=== PATIENT | male | born 1960 | race Caucasian/White ===

== ENCOUNTER 2019-01-05 22:10 | Inpatient (IN) ==
--- NOTE | 2019-01-05 22:58 | Emergency Department Note ---
Entered by Roberta Culp acting as a scribe for Salas Stallworth DO History of Present Illness General Chief complaint: Infection Stated complaint: INFECTION IN FEET Source: patient History of Present Illness Provider complaint: foot pain Onset (ago): day(s) (several days ) Location: foot and right Pain Consistency: + other (worsening) Maximum Pain Intensity: 9 Associated symptoms: + fever/chills (+fever, -chills) and + other (+swelling in rigth foot) The patient is a 58 year old male who presents to the Emergency Room with complaints of worsening right food pain. He states that he has been having swelling and pain in the right foot. The patient reports that he thinks that the pain is radiating to his left foot. He reports that his blood sugar was 310 this morning. He states that he has a fever of 104. The patient denies any alcohol use. He denies being on blood thinners. The patient states that he has a history of diabetes mellitus and psoriatic arthritis. Home Medications Home Medications Medication Instructions Recorded Confirmed Type Unobtainable 01/06/19 01/06/19 History Past Med/Surg History Medical History Diabetes mellitus (Chronic) Psoriatic arthritis (Chronic) Social History Preferred Language: Lebanese [employer] Dis[employer] Required: No Beliefs That Will Affect Care: None Current Living Situation: Other Current Living Situation Comment: inmate. Other Information That Helps Us Care for You: No Feels Safe at Home: Yes Safety Concerns: Feels Safe At This Time Smoking Status: Former smoker Hx Alcohol Use: No Hx Substance Use: No Review of Systems See HPI for pertinent positives & negatives. and A total of 10 systems reviewed and were otherwise negative Physical Exam Vital Signs Vital Signs - 24 hr 01/05/19 22:15 01/05/19 23:44 01/06/19 00:00 Temperature 36.7 C Temperature Source Oral Sepsis Recent Fever Within 48 Hours No Sepsis Action Taken by Nursing No Action Required Pulse Rate 59 L 73 Pulse Rate [Right Finger] 73 Pulse Rhythm Regular Pulse Rhythm [Right Finger] Regular Pulse Strength [Right Finger] Normal Respiratory Rate 18 16 16 Respiratory Effort / Characteristics Non-Labored Spontaneous Non-Labored Respiratory Depth Normal Normal Respiratory Pattern Regular Regular Blood Pressure 164/75 H Blood Pressure [Right Arm] 135/58 L Blood Pressure Mean 104 Blood Pressure Mean [Right Arm] 83 Blood Pressure Position Sitting Blood Pressure Position [Right Arm] Lying Pulse Oximetry 93 96 96 Oxygen Delivery Method Room Air Room Air Room Air 01/06/19 01:00 Temperature Temperature Source Sepsis Recent Fever Within 48 Hours Sepsis Action Taken by Nursing Pulse Rate Pulse Rate [Right Finger] 68 Pulse Rhythm Pulse Rhythm [Right Finger] Regular Pulse Strength [Right Finger] Normal Respiratory Rate 16 Respiratory Effort / Characteristics Non-Labored Respiratory Depth Normal Respiratory Pattern Regular Blood Pressure Blood Pressure [Right Arm] 130/60 Blood Pressure Mean Blood Pressure Mean [Right Arm] 83 Blood Pressure Position Blood Pressure Position [Right Arm] Lying Pulse Oximetry 98 Oxygen Delivery Method Room Air GENERAL: Patient is awake alert in no acute distress patient is resting comfortably and showing no signs of anxiety EYES: The conjunctivae are clear. The pupils are round and reactive. EARS, NOSE, MOUTH AND THROAT: The nose is without any evidence of any deformity. Mucous membranes are moist tongue is midline NECK: The neck is nontender and supple. RESPIRATORY: Normal respiratory effort is noted there is no evidence of wheezing rhonchi or rales CARDIOVASCULAR: Regular rate and rhythm noted there no murmurs rubs or gallops normal S1 normal S2 GASTROINTESTINAL: The abdomen is soft. Bowel sounds are present in all quadrants. Abdomen is nontender MUSCULOSKELETAL/EXTREMITIES: There is no evidence of gross deformity full range of motion is noted in the hips and shoulders SKIN: There is bilateral lower extremity edema noted. There is an ulcer on the medial aspect of the right leg. It does have the odor of infection. There is no significant drainage noted. Pulses are symmetric in both feet. NEUROLOGIC: Patient is awake alert and oriented x3. Course 2250: The patient was evaluated in room A9B, and a complete history and physical examination were performed. 0120: I reviewed the patient's case with Dr. Rico [facility] Hospitalist. He will evaluate the patient for further management. Consultations Consultation #1: Dr. Rico [facility] Hospitalist Time: 01:20 Administered Medications Vancomycin HCl 2,250 mg/ (Sodium Chloride) 545 mls @ 200 mls/hr IV NOW ONE; Protocol Stop: 01/06/19 04:02 Last Admin: 01/06/19 02:08 Dose: Not Given Documented by: [id number] Discontinued Medications Piperacillin Sod/Tazobactam Sod (Zosyn) 4.5 gm in 120 mls @ 240 mls/hr IV NOW ONE Stop: 01/06/19 01:48 Last Admin: 01/06/19 02:08 Dose: Not Given Documented by: [id number] Miscellaneous Information (Consult) 1 ea N/A UD PRN PRN Reason: Consult Stop: 02/05/19 01:18 Last Admin: 01/06/19 02:08 Dose: 1 ea Documented by: [id number] Medical Decision Making Differential Diagnosis Differential diagnosis: Etiologies such as cellulitis, abscess, MRSA infection, DVT, necrotizing fasciitis, dermatitis, drug eruption, as well as others were entertained. Medical Records Attestation: I reviewed the patient's medical records. Home Medications Current Medication List: was personally reviewed by me Laboratory Data Attestation: I reviewed the patient's lab results. Result diagrams: 01/05/19 23:24 01/05/19 23:24 Lab Results 01/05/19 01/05/19 01/05/19 Range/Units 23:24 23:24 23:24 WBC 11.62 H (4.8-10.8) K/uL RBC 4.37 L (4.7-6.1) M/uL Hgb 14.3 (14.0-18.0) g/dL Hct 40.5 L (42-52) % MCV 92.7 (80-100) fL MCH 32.7 (25-34) pg MCHC 35.3 (32-36) g/dL RDW Std Deviation 44.3 (36.4-46.3) fL RDW Coeff of Susanne 13.0 (11.5-14.5) % Plt Count 271 (130-400) K/uL MPV 8.9 (7.4-10.4) fL Immature Gran % (Auto) 0.4 % Neut % (Auto) 61.4 % Lymph % (Auto) 29.3 % [place] % (Auto) 7.1 % Eos % (Auto) 1.5 % Baso % (Auto) 0.3 % Immature Gran # (Auto) 0.05 H (0.00-0.02) K/uL Neut # (Auto) 7.14 H (1.4-6.5) K/uL Lymph # (Auto) 3.40 (1.2-3.4) K/uL [place] # (Auto) 0.82 H (0.11-0.59) K/uL Eos # (Auto) 0.18 (0-0.5) K/uL Baso # (Auto) 0.03 (0-0.2) K/uL ESR (0-14) mm/hr PT 10.5 (9.0-12.0) Seconds INR 1.0 (0.9-1.1) APTT 26.3 (21.0-31.0) Seconds PTT Ratio 1.0 Sodium 138 (136-145) mmol/L Potassium 3.6 (3.5-5.1) mmol/L Chloride 105 (98-107) mmol/L Carbon Dioxide 26 (21-32) mmol/L Anion Gap 7.0 (3-11) BUN 17 (7-18) mg/dl Creatinine 0.73 (0.6-1.4) mg/dl Est Cr Clr Drug Dosing 160.0 ml/min Est GFR ( Amer) 120.2 Est GFR (Non-Af Amer) 103.7 BUN/Creatinine Ratio 22.9 H (10-20) Glucose 97 (70-99) mg/dl Lactate (0.4-2.0) mmol/L Calcium 9.1 (8.5-10.1) mg/dl Total Bilirubin 0.4 (0.2-1) mg/dl AST 17 (15-37) U/L ALT 27 (12-78) U/L Alkaline Phosphatase 130 H (45-117) U/L C-Reactive Protein 1.37 H (0-0.29) mg/dl Total Protein 7.1 (6.4-8.2) gm/dl Albumin 4.0 (3.4-5.0) gm/dl Globulin 3.1 (2.5-4.0) gm/dl Albumin/Globulin Ratio 1.3 (0.9-2) Procalcitonin (0-0.5) ng/ml 01/05/19 01/05/19 01/05/19 Range/Units 23:24 23:24 23:24 WBC (4.8-10.8) K/uL RBC (4.7-6.1) M/uL Hgb (14.0-18.0) g/dL Hct (42-52) % MCV (80-100) fL MCH (25-34) pg MCHC (32-36) g/dL RDW Std Deviation (36.4-46.3) fL RDW Coeff of Susanne (11.5-14.5) % Plt Count (130-400) K/uL MPV (7.4-10.4) fL Immature Gran % (Auto) % Neut % (Auto) % Lymph % (Auto) % [place] % (Auto) % Eos % (Auto) % Baso % (Auto) % Immature Gran # (Auto) (0.00-0.02) K/uL Neut # (Auto) (1.4-6.5) K/uL Lymph # (Auto) (1.2-3.4) K/uL [place] # (Auto) (0.11-0.59) K/uL Eos # (Auto) (0-0.5) K/uL Baso # (Auto) (0-0.2) K/uL ESR 19 H (0-14) mm/hr PT (9.0-12.0) Seconds INR (0.9-1.1) APTT (21.0-31.0) Seconds PTT Ratio Sodium (136-145) mmol/L Potassium (3.5-5.1) mmol/L Chloride (98-107) mmol/L Carbon Dioxide (21-32) mmol/L Anion Gap (3-11) BUN (7-18) mg/dl Creatinine (0.6-1.4) mg/dl Est Cr Clr Drug Dosing ml/min Est GFR ( Amer) Est GFR (Non-Af Amer) BUN/Creatinine Ratio (10-20) Glucose (70-99) mg/dl Lactate 0.7 (0.4-2.0) mmol/L Calcium (8.5-10.1) mg/dl Total Bilirubin (0.2-1) mg/dl AST (15-37) U/L ALT (12-78) U/L Alkaline Phosphatase (45-117) U/L C-Reactive Protein (0-0.29) mg/dl Total Protein (6.4-8.2) gm/dl Albumin (3.4-5.0) gm/dl Globulin (2.5-4.0) gm/dl Albumin/Globulin Ratio (0.9-2) Procalcitonin < 0.05 (0-0.5) ng/ml Imaging Data Attestation: I personally reviewed and interpreted this imaging study as follows: My Impression: XR chest: Cardiomegaly noted , no infiltrate, no free air XR tibia: Post-surgical changes noted in medial myelitis. Soft tissue swelling noted on medial aspect of right leg Blood Pressure Blood Pressure Findings: Elevated blood pressure Blood Pressure Disposition: further management by hospitalist BENJIE Narrative The patient is a 58-year-old male who presents to the emergency department with police custody. [facility] is no infirmary and the patient would not have access to medical care while he is in the longterm. The patient has been having problems with right lower extremity swelling and redness. It does not sound like this is a new finding but the patient has not been taking medications. He had a history of infection as well as osteomyelitis at this site. The patient had significant pain and redness. He had no fever. The patient is a history of diabetes and other medical problems but he is not currently compliant with medications. I discussed the patient's laboratory and radiographic studies with him. He was found to have an elevated white blood cell count. He also has significant soft tissue swelling on x-ray. The patient had cultures obtained. I discussed his case with the on- call [facility] hospitalist group. They have agreed to evaluate the patient in the emergency department for further management and disposition. Initially we did order antibiotics for the patient but at the request of the admitting team they will be held until the patient can be evaluated further and possible biopsies taken. Impression & Plan Diabetic ulcer of ankle, Gangrene, Edema of right lower extremity Discharge Plan Visit Data *Final* Discharge Date/Time: 01/06/19 02:07 Chief Complaint: Infection Stated Complaint: INFECTION IN FEET ED Provider: Salas Stallworth Discharge Problem: Diabetic ulcer of ankle, Gangrene, Edema of right lower extremity Patient Disposition: Admitted As Inpatient Discharge Instructions Interventions: ED Discharge Assessment Last Done: 01/06/19 02:07 The scribe's documentation has been prepared under my direction and personally reviewed by me in its entirety. I confirm that the note above accurately reflects all work, treatment, procedures, and medical decision making performed by me.
[2019-01-05 23:54] LABS: Basophils # (auto) 0.03 K/uL (0-0.2); Basophils % (auto) 0.3 %; Eosinophils # (auto) 0.18 K/uL (0-0.5); Eosinophils % (auto) 1.5 %; Hematocrit (blood only) 40.5 % (42-52); Hemoglobin 14.3 g/dL (14.0-18.0); Immature Granulocytes # (auto) 0.05 K/uL (0.00-0.02); Immature Granulocytes % (auto) 0.4 %; Lymphocytes % (auto) 29.3 %; Mean Corpuscular Hgb Conc 35.3 g/dL (32-36); Mean Corpuscular Volume 92.7 fL (80-100); Mean Platelet Volume 8.9 fL (7.4-10.4); Monocytes # (auto) 0.82 K/uL (0.11-0.59); Monocytes % (auto) 7.1 %; Neutrophils # (auto) 7.14 K/uL (1.4-6.5); Neutrophils % (auto) 61.4 %; Platelet Count 271 K/uL (130-400); RDW Standard Deviation 44.3 fL (36.4-46.3); Red Blood Count 4.37 M/uL (4.7-6.1); White Blood Count 11.62 K/uL (4.8-10.8)
[2019-01-06 00:06] LABS: Partial Thromboplastin Time 26.3 Seconds (21.0-31.0); Prothrombin Time 10.5 Seconds (9.0-12.0)
[2019-01-06 00:13] LABS: BUN Creatinine Ratio 22.9 (10-20); C Reactive Protein 1.37 mg/dl (0-0.29); Calcium 9.1 mg/dl (8.5-10.1); Est GFR (African American) 120.2; Est GFR (Non-African American) 103.7; Potassium 3.6 mmol/L (3.5-5.1)
[2019-01-06 00:16] LABS: Albumin Globulin Ratio 1.3 (0.9-2); Bilirubin,Total 0.4 mg/dl (0.2-1); Globulin 3.1 gm/dl (2.5-4.0); Total Protein 7.1 gm/dl (6.4-8.2)
[2019-01-06] MEDS ORDERED: PIPERACILL/TAZOBAC CONSULT ACTIVE PRN (01:19)
[2019-01-06] MEDS ORDERED: VANCOMYCIN CONSULT ACTIVE PRN ×2 (01:19→08:19)
[2019-01-06] MEDS ORDERED: VANCOMYCIN HCL 2,250 MG in SODIUM CHLORIDE 0.9% 500 ML IV ONE ×2 (01:19→09:30)
[2019-01-06] MEDS ORDERED: PIPERACILLIN/TAZOBACTAM 4.5 GM/120 ML BAG IV ONE (01:19)
[2019-01-06] MEDS ORDERED: ONDANSETRON INJ 2 MG/ML 2 ML VIAL IV PRN (02:26)
[2019-01-06] MEDS ORDERED: ACETAMINOPHEN 1000 MG/100 ML IV IV PRN (02:26)
[2019-01-06] MEDS ORDERED: CARBOHYDRATES FOR HYPOGLYCEMIA PO PRN (02:26)
[2019-01-06] MEDS ORDERED: GLUCAGON FOR INJ 1 MG VIAL SQ PRN (02:26)
[2019-01-06] MEDS ORDERED: DEXTROSE 50% 50 ML SYRINGE IV PRN (02:26)
[2019-01-06] MEDS ORDERED: GLUCOSE 40% GEL 15 GM TUBE PO PRN (02:26)
[2019-01-06] MEDS ORDERED: GLUCOSE 10 TABS/TUBE PO PRN (02:26)
[2019-01-06] MEDS: NSS + 20MEQ KCL 20 MEQ/1,000 ML BAG IV SCH ×3 (03:25→23:53)
[2019-01-06 05:30] LABS: Appearance Urine Clear (Clear); Bilirubin Urine Negative (Negative); Color Urine Yellow; Glucose Urine UA 2+ (Negative); Ketones Urine Negative (Negative); Leukocyte Esterase Urine Negative (Negative); Nitrite Urine Negative (Negative); Protein Urine Negative (Negative); Specific Gravity Urine 1.018 (1.000-1.030); Urobilinogen Urine Negative (Negative)
--- NOTE | 2019-01-06 06:06 | History & Physical Report ---
Date of Service January 06, 2019 Assessment & Plan (1) Diabetic ulcer of ankle: Diabetic ulcers of right ankle/history of ORIF with pins/reported history of bone infection in the past- No records available for patient's medical history. We will hold off on antibiotics at this point until seen by orthopedics to determine best course of treatment with hardware present. Order CT of right lower extremity/ankle. Consult orthopedic surgery. Present on Admission?: Yes (2) Neutrophilic leukocytosis: See above Present on Admission?: Yes (3) Diabetes mellitus: Patient does not have a list of his medications available. We will check hemoglobin A1c. Place on Accu-Cheks before meals and at bedtime with NovoLog coverage per scale. Present on Admission?: Yes (4) Status post ORIF of fracture of ankle: See above Present on Admission?: Yes (5) Obesity (BMI 30-39.9): Counseling Present on Admission?: Yes History of Present Illness Chief Complaint: The patient is brought to the emergency department due to worsening right ankle open wounds and pain. Primary Care Provider: [facility] The patient is a 58-year-old male, currently residing in [facility], who is brought to the emergency department due to worsening pain, swelling and open lesions on both sides of his right ankle. He reports a temperature of 104 degrees and his blood sugar was 310 this morning. He has a history of fracture and pins placed in the right ankle. Allergies Allergy/AdvReac Type Severity Reaction Status Date / Time bee venom protein (honey bee) Allergy Severe Anaphylaxis Verified 01/06/19 04:40 Penicillins Allergy Severe Anaphylaxis Verified 01/06/19 04:40 Home Medications Home Medications Medication Instructions Recorded Confirmed Type Unobtainable 01/06/19 01/06/19 History Past Med/Surg History Medical History Diabetes mellitus (Chronic) Psoriatic arthritis (Chronic) Social History Preferred Language: [place] [employer] Required: No Beliefs That Will Affect Care: None Current Living Situation: Other Current Living Situation Comment: inmate. Other Information That Helps Us Care for You: No Feels Safe at Home: Yes Safety Concerns: Feels Safe At This Time Smoking Status: Former smoker Hx Alcohol Use: No Hx Substance Use: No Review of Systems Review of Systems: The patient denies chest pain, palpitations, shortness of breath, dyspnea on exertion, cough, sore throat, chills, sweats, nausea, vomiting, diarrhea , constipation, abdominal pain, pelvic pain, blood in urine or stool, dysuria, urinary frequency or urgency, lightheadedness, dizziness, headache, memory loss, loss of consciousness, focal or generalized weakness, numbness or tingling in arms, generalized arthralgias or myalgias, back or neck pain, or night sweats. The review of systems is otherwise negative other than for that already noted above, and at least 10 systems have been reviewed. Physical Exam Physical Exam: The patient is awake, alert and oriented 3, obese and unkempt, normocephalic and atraumatic, lying in bed and in no acute distress. HEENT--PERRL, EOMI, mucous membranes and oropharynx normal. Neck--supple. No JVD. No bruits. Thyroid normal, trachea midline, no adenopathy. Heart--normal S1 and S2. No murmurs, rubs or gallops. Lungs--clear bilaterally, no respiratory distress, no accessory muscle use. Abdomen--normal bowel sounds and soft. Nontender. Nondistended, obese. Extremities/dermatologic--chronic venous stasis changes bilaterally. Right lower extremity with open ulcerations medially greater than laterally and surrounding erythema. Tender to touch Neurologic--cranial nerves II through XII grossly intact. Rheumatologic--normal range of motion. Psychiatric--normal affect. Results & Data Vital Signs (Past 12 Hours) Vital Signs Temp Pulse Pulse Resp BP BP Pulse Ox 01/06/19 02:07 62 16 136/56 L 97 01/06/19 01:00 68 16 130/60 98 01/06/19 00:00 73 16 96 01/05/19 23:44 73 16 135/58 L 96 01/05/19 22:15 98.1 F 59 L 18 164/75 H 93 Laboratory Results Laboratory Results WBC 11.62 K/uL (4.8-10.8) H 01/05/19 23:24 RBC 4.37 M/uL (4.7-6.1) L 01/05/19 23:24 Hgb 14.3 g/dL (14.0-18.0) 01/05/19 23:24 Hct 40.5 % (42-52) L 01/05/19 23:24 MCV 92.7 fL (80-100) 01/05/19 23:24 MCH 32.7 pg (25-34) 01/05/19 23:24 MCHC 35.3 g/dL (32-36) 01/05/19 23:24 RDW Std Deviation 44.3 fL (36.4-46.3) 01/05/19: RDW Coeff of Susanne 13.0 % (11.5-14.5) 01/05/19: Plt Count 271 K/uL (130-400) 01/05/19: MPV 8.9 fL (7.4-10.4) 01/05/19: Immature Gran % (Auto) 0.4 % 01/05/19 23: Neut % (Auto) 61.4 % 01/05/19 23:24 Lymph % (Auto) 29.3 % 01/05/19 23:24 [place] % (Auto) 7.1 % 01/05/19 23:24 Eos % (Auto) 1.5 % 01/05/19: Baso % (Auto) 0.3 % 01/05/19: Immature Gran # (Auto) 0.05 K/uL (0.00-0.02) H 01/05/19 23:24 Neut # (Auto) 7.14 K/uL (1.4-6.5) H 01/05/19 23:24 Lymph # (Auto) 3.40 K/uL (1.2-3.4) 01/05/19 23:24 [place] # (Auto) 0.82 K/uL (0.11-0.59) H 01/05/19 23:24 Eos # (Auto) 0.18 K/uL (0-0.5) 01/05/19: Baso # (Auto) 0.03 K/uL (0-0.2) 01/05/19 23:24 ESR 19 mm/hr (0-14) H 01/05/19 23:24 PT 10.5 Seconds (9.0-12.0) 01/05/19 23: INR 1.0 (0.9-1.1) 01/05/19 23:24 APTT 26.3 Seconds (21.0-31.0) 01/05/19 23:24 PTT Ratio 1.0 01/05/19 23:24 Sodium 138 mmol/L (136-145) 01/05/19 23:24 Potassium 3.6 mmol/L (3.5-5.1) 01/05/19 23:24 Chloride 105 mmol/L (98-107) 01/05/19 23:24 Carbon Dioxide 26 mmol/L (21-32) 01/05/19 23:24 Anion Gap 7.0 (3-11) 01/05/19 23:24 BUN 17 mg/dl (7-18) 01/05/19 23:24 Creatinine 0.73 mg/dl (0.6-1.4) 01/05/19 23:24 Est Cr Clr Drug Dosing 160.0 ml/min 01/05/19 23:24 Est GFR ( Amer) 120.2 01/05/19 23:24 Est GFR (Non-Af Amer) 103.7 01/05/19 23:24 BUN/Creatinine Ratio 22.9 (10-20) H 01/05/19 23:24 Glucose 97 mg/dl (70-99) 01/05/19 23:24 POC Glucose 140 (70-99) H 01/06/19 03:39 Lactate 0.7 mmol/L (0.4-2.0) 01/05/19 23:24 Calcium 9.1 mg/dl (8.5-10.1) 01/05/19 23:24 Total Bilirubin 0.4 mg/dl (0.2-1) 01/05/19 23:24 AST 17 U/L (15-37) 01/05/19 23:24 ALT 27 U/L (12-78) 01/05/19 23:24 Alkaline Phosphatase 130 U/L (45-117) H 01/05/19 23:24 C-Reactive Protein 1.37 mg/dl (0-0.29) H 01/05/19 23:24 Total Protein 7.1 gm/dl (6.4-8.2) 01/05/19 23:24 Albumin 4.0 gm/dl (3.4-5.0) 01/05/19 23:24 Globulin 3.1 gm/dl (2.5-4.0) 01/05/19 23:24 Albumin/Globulin Ratio 1.3 (0.9-2) 01/05/19 23:24 Procalcitonin < 0.05 ng/ml (0-0.5) 01/05/19 23:24 Urine Color Yellow 01/06/19 05:00 Urine Appearance Clear (Clear) 01/06/19 05:00 Urine pH 7.0 (4.5-7.5) 01/06/19 05:00 Ur Specific [place] 1.018 (1.000-1.030) 01/06/19 05:00 Urine Protein Negative (Negative) 01/06/19 05:00 Urine Glucose (UA) 2+ (Negative) H 01/06/19 05:00 Urine Ketones Negative (Negative) 01/06/19 05:00 Urine Blood Negative (Negative) 01/06/19 05:00 Urine Nitrite Negative (Negative) 01/06/19 05:00 Urine Bilirubin Negative (Negative) 01/06/19 05:00 Urine Urobilinogen Negative (Negative) 01/06/19 05:00 Ur Leukocyte Esterase Negative (Negative) 01/06/19 05:00 Code Status & VTE Plan Code Status Full code VTE Prophylaxis Plan VTE Prophylaxis will be ordered: Yes PG Care Time/CCT Total # of Minutes Spent Total Time Spent with Patient: Total time spent is greater than 50% in coordination of care (as documented) at patient's floor/unit and/or counseling patient:
--- NOTE | 2019-01-06 06:37 | XRay Report ---
XR chest 1V portable CLINICAL HISTORY: Sepsis COMPARISON STUDY: No previous studies for comparison. FINDINGS: Lung volumes are normal. Lungs are clear. There is no pneumothorax or pleural effusion. The heart is mildly enlarged. Mediastinal contours are normal. There is no evidence for pulmonary edema. IMPRESSION: 1. No acute cardiopulmonary findings. 2. Mild cardiomegaly. Electronically signed by: Kong Green M.D. 01/06/2019 6:35 AM
[2019-01-06 06:41] LABS: Basophils # (auto) 0.03 K/uL (0-0.2); Basophils % (auto) 0.3 %; Eosinophils # (auto) 0.22 K/uL (0-0.5); Eosinophils % (auto) 2.5 %; Hematocrit (blood only) 41.2 % (42-52); Hemoglobin 14.3 g/dL (14.0-18.0); Immature Granulocytes # (auto) 0.02 K/uL (0.00-0.02); Immature Granulocytes % (auto) 0.2 %; Lymphocytes # (auto) 2.41 K/uL (1.2-3.4); Lymphocytes % (auto) 27.7 %; Mean Corpuscular Hgb Conc 34.7 g/dL (32-36); Mean Corpuscular Volume 92.8 fL (80-100); Mean Platelet Volume 8.9 fL (7.4-10.4); Monocytes # (auto) 0.74 K/uL (0.11-0.59); Monocytes % (auto) 8.5 %; Neutrophils # (auto) 5.27 K/uL (1.4-6.5); Neutrophils % (auto) 60.8 %; Platelet Count 255 K/uL (130-400); RDW Coefficient of Variation 13.1 % (11.5-14.5); RDW Standard Deviation 44.6 fL (36.4-46.3); Red Blood Count 4.44 M/uL (4.7-6.1); White Blood Count 8.69 K/uL (4.8-10.8)
[2019-01-06 06:52] LABS: Partial Thromboplastin Time 27.6 Seconds (21.0-31.0); Prothrombin Time 10.5 Seconds (9.0-12.0)
--- NOTE | 2019-01-06 06:56 | XRay Report ---
XR tibia fibula RT 2V HISTORY: 58 years-old Male ulcer to the RLE chronic pain and swelling of the right lower leg with op en wounds. COMPARISON: Right ankle CT of same day TECHNIQUE: 2 views of the right tibia and fibula FINDINGS: There are 2 K wires with cannulated screw and cerclage wire noted about the medial malleolus. No acut e fracture, subluxation or bony erosive changes identified. Soft tissue swelling noted about the leg, and ankle. No opaque foreign body. Mild degenerative changes of the ankle and knee. IMPRESSION: 1. No acute fracture or dislocation. 2. Soft tissue swelling with postoperative changes of the ankle. The above report was generated using voice recognition software. It may contain grammatical, syntax o r spelling errors. Electronically signed by: Bienvenido Rocha M.D. 01/06/2019 6:55 AM
[2019-01-06] MEDS: PATIENT'S ALLERGY INFO NEEDS ENTERED SCH (07:00)
[2019-01-06 07:09] LABS: Albumin Level 3.5 gm/dl (3.4-5.0); BUN Creatinine Ratio 20.5 (10-20); Calcium 8.5 mg/dl (8.5-10.1); Creatinine Clr Calc Pharmacy 175.7 ml/min; Est GFR (African American) 120.9; Est GFR (Non-African American) 104.3; Potassium 3.9 mmol/L (3.5-5.1)
[2019-01-06 07:12] LABS: Albumin Globulin Ratio 1.1 (0.9-2); Bilirubin,Total 0.6 mg/dl (0.2-1); Globulin 3.1 gm/dl (2.5-4.0); Total Protein 6.6 gm/dl (6.4-8.2)
--- NOTE | 2019-01-06 07:47 | CT Scan Report ---
CT ankle RT wo con HISTORY: 58 years-old Male diabetic R ankle ulcers, pins previous fracture chronic diabetic ulcer of the right lower leg with history of prior surgery of the ankle. COMPARISON: Tibia and fibula radiographs of same day TECHNIQUE: Multiple axial CT images of the right ankle were obtained without the use of IV contrast. A dose lowering technique was used consistent with the principals of NGHIA. FINDINGS: Soft tissue ulceration about the medial malleolus measures up to 3.1 x 0.4 x 4.3 cm. There is skin th ickening within this distribution with moderate subcutaneous edema. No drainable fluid collection. Ad ditional soft tissue ulceration is noted about the lateral hindfoot distribution, 1.1 x 0.5 x 2.7 cm without drainable fluid collection. Study is not tailored to assess the ligaments and tendons. Superf icial venous varices noted about the lower leg and ankle. The tendons of the ankle appear grossly unr emarkable. There are 2 K wires with cerclage wire and single cannulated screw noted about the medial malleolus. No evidence of hardware fracture or loosening. 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 Remote fra cture deformity is of the distal tibia and fibula. Marginal spurring of the calcaneus. No acute fract ure, dislocation, bony erosive change or osteochondral defect identified. No intra-articular loose chacha dy. IMPRESSION: 1. No acute fracture, dislocation or bony erosive changes to suggest acute osteomyelitis. 2. Healed remote fracture deformities of the ankle with hardware of the medial malleolus as above. No evidence of acute hardware complication. 3. Soft tissue ulcerations about the medial ankle and lateral hindfoot as above. Additionally, there is associated skin thickening within these distributions with subcutaneous edema suggestive of associ ated cellulitis. No opaque foreign body or drainable fluid collection. The above report was generated using voice recognition software. It may contain grammatical, syntax o r spelling errors. Electronically signed by: Bienvenido Rocha M.D. 01/06/2019 7:45 AM
[2019-01-06] MEDS: INSULIN ASPART 100 UNITS/ML 3 ML PEN SC SCH ×4 (08:31→22:06)
[2019-01-06 09:44] LABS: Estimated Average Glucose 146 mg/dl
--- NOTE | 2019-01-06 09:55 | Pharmacy Report ---
Pharmacy Abx Initial Consult - Date of Service January 06, 2019 - Pharmacy Dosing Scope Date of Consult: 01/06/19 Consultation requested by: Dr. Baker Pharmacy is consulted to initiate vancomycin IV/PO dosing therapy, order appropriate labs and adjust drug dose/frequency. - Subjective The patient is a 58 year old M admitted on 01/06/19 01:49. - Objective Height: 6 ft 6 in Weight: 134 kg Lab Results (24hrs): Laboratory Tests (24 Hours) 01/06/19 01/06/19 01/05/19 06:27 06:27 23:24 WBC 8.69 Neut # (Auto) 5.27 ESR 19 H Creatinine 0.72 Est Cr Clr Drug Dosing 175.7 C-Reactive Protein Procalcitonin Micro Results: 01/06/19 01:46 Gram Stain - Final Ankle,Right Wound Culture - Pending 01/05/19 23:49 Aerobic Blood Culture - Pending Blood Anaerobic Blood Culture - Pending 01/05/19 23:24 Aerobic Blood Culture - Pending Blood Anaerobic Blood Culture - Pending - Assessment & Plan Assessment 58 year old with diabetic ulcer of ankle. Per MD note, patient reports history of bone infection in the past. Ortho consulted due to hardware being present. Xrays not suggestive of acute osteomyelitis or evidence of hardware complication. ID consulted per P[employer]T policy due to patient also being ordered imipenem. Vancomycin: * 2250 mg x 1 had been ordered in the ED - however documentation shows not given/but noted dose infused on entry. Patient reports dose not being given and also checked and have original bag in pharmacy. No other doses debited * Reordered loading dose of vancomycin 2250 mg (~20 mg/kg) - based on admitting weight of 113 kg ; had nurse reweigh patient today and weight ~127 kg * Will start maintenance dose of vancomycin 1500 mg (~12 mg/kg) iv q 10 hrs to achieve an estimated trough ~15 mcg/ml (goal for cellulitis) - unconventional dosing chosen as patient with higher BMI, therefore expect some accumulation with vancomycin * Will plan to order trough prior to the 0200 dose on 01/08 to ensure therapeutic Imipenem: (not consult) 500 mg iv q 6 - dosed appropriate / no adjustment for renal function Pharmacy will continue to follow and will adjust dose/frequency as necessary. Thank you.
[2019-01-06] MEDS: IMIPENEM/CILASTATIN SODIUM 500 MG in DEXTROSE 5% 100 ML IV SCH ×3 (12:55→23:55)
--- NOTE | 2019-01-06 17:18 | History & Physical Bridge Note ---
Date of Service January 06, 2019 History & Physical Bridge Note Patient seen and examined today. Still with ankle pain. Reports it has been getting worse over the last few days. - IV abx - Wound RN - Ortho consult - Follow cultures
--- NOTE | 2019-01-06 19:05 | Orthopedic Consultation ---
Date of Consultation January 06, 2019 Assessment & Plan (1) Diabetic ulcer of ankle: Acute on chronic diabetic ankle ulceration, CT negative for osteo/abcess, follow cultures, begin IV abx, wound care with wound vac/enzymatic debridement, NWB RLE, Ice/elevation, trend inflammatory labs, if symptoms worsening will require formal I+D in OR and possible removal of hardware, will continue to monitor. Thank you for the consultation. History of Present Illness Reason for Consultation: The patient is a 58 year old incarcerated male with PMHx of DM, previous right ankle fracture treated in [place] 8 years prior, liu moran reports several year history of intermittent medial ankle ulcer. The patient is a poor historian. Reports rubbing of medial ankle inside his boot recently and developed worsening medial and lateral foot ulceration. Had episode of fevers and seen at [facility] ED. Elevated WBC at 11.62 now 8.69. Patient currently afebrile, has not had abx or wound care since symptoms developed. Denies trauma, numbness or tingling in RLE. Attending Physician: Deion Baker MD Allergies Allergy/AdvReac Type Severity Reaction Status Date / Time bee venom protein (honey bee) Allergy Severe Anaphylaxis Verified 01/06/19 04:40 Penicillins Allergy Severe Anaphylaxis Verified 01/06/19 04:40 Home Medications Home Medications Medication Instructions Recorded Confirmed Type Unobtainable 01/06/19 01/06/19 History Patient History Medical History Diabetes mellitus (Chronic) Psoriatic arthritis (Chronic) Social History Preferred Language: [place] [employer] Sales[employer] Required: No Beliefs That Will Affect Care: None Current Living Situation: Other Current Living Situation Comment: inmate. Other Information That Helps Us Care for You: No Feels Safe at Home: Yes Safety Concerns: Feels Safe At This Time Smoking Status: Former smoker Hx Alcohol Use: No Hx Substance Use: No Review of Systems Review of Systems: All systems reviewed & are unremarkable except as noted in HPI & below Constitutional: as per Subjective / HPI Physical Exam Physical Exam: RLE NVSI +EHL/FHL/TA/GS SILT grossly, +2 DP pulse, compartments soft NT, 2.5x3.5cm medial ankle wound, 1x1cm lateral ankle wound, +erythema and edema, no fluctuance or purulent drainage, no exposed hardware. Constitutional: WD/WN, vitals as above Results & Data Vital Signs (Past 12 Hours) Vital Signs Temp Pulse Resp BP Pulse Ox 01/06/19 16:03 36.7 C 63 122/65 01/06/19 07:16 36.6 C 56 L 16 113/63 95 Diagnostic Findings XR tibia fibula RT 2V HISTORY: 58 years-old Male ulcer to the RLE chronic pain and swelling of the right lower leg with open wounds. COMPARISON: Right ankle CT of same day TECHNIQUE: 2 views of the right tibia and fibula FINDINGS: There are 2 K wires with cannulated screw and cerclage wire noted about the medial malleolus. No acute fracture, subluxation or bony erosive changes identified. Soft tissue swelling noted about the leg, and ankle. No opaque foreign body. Mild degenerative changes of the ankle and knee. IMPRESSION: 1. No acute fracture or dislocation. 2. Soft tissue swelling with postoperative changes of the ankle. CT ankle RT wo con HISTORY: 58 years-old Male diabetic R ankle ulcers, pins previous fracture chronic diabetic ulcer of the right lower leg with history of prior surgery of the ankle. COMPARISON: Tibia and fibula radiographs of same day TECHNIQUE: Multiple axial CT images of the right ankle were obtained without the use of IV contrast. A dose lowering technique was used consistent with the principals of ALARA. FINDINGS: Soft tissue ulceration about the medial malleolus measures up to 3.1 x 0.4 x 4.3 cm. There is skin thickening within this distribution with moderate subcutaneous edema. No drainable fluid collection. Additional soft tissue ulceration is noted about the lateral hindfoot distribution, 1.1 x 0.5 x 2.7 cm without drainable fluid collection. Study is not tailored to assess the ligaments and tendons. Superficial venous varices noted about the lower leg and ankle. The tendons of the ankle appear grossly unremarkable. There are 2 K wires with cerclage wire and single cannulated screw noted about the medial malleolus. No evidence of hardware fracture or loosening. 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 Remote fracture deformity is of the distal tibia and fibula. Marginal spurring of the calcaneus. No acute fracture, dislocation, bony erosive change or osteochondral defect identified. No intra- articular loose body. IMPRESSION: 1. No acute fracture, dislocation or bony erosive changes to suggest acute osteomyelitis. 2. Healed remote fracture deformities of the ankle with hardware of the medial malleolus as above. No evidence of acute hardware complication. 3. Soft tissue ulcerations about the medial ankle and lateral hindfoot as above. Additionally, there is associated skin thickening within these distributions with subcutaneous edema suggestive of associated cellulitis. No opaque foreign body or drainable fluid collection.
[2019-01-06] MEDS: VANCOMYCIN HCL 1,500 MG in SODIUM CHLORIDE 0.9% 500 ML IV SCH (19:32)
[2019-01-06] MEDS: MoRPHine SULFATE 4 MG/ML 1 ML CARP\\VIAL IV PRN ×2 (19:38→23:53)
[2019-01-07] MEDS: IMIPENEM/CILASTATIN SODIUM 500 MG in DEXTROSE 5% 100 ML IV SCH ×3 (04:19→19:21)
[2019-01-07] MEDS: VANCOMYCIN HCL 1,500 MG in SODIUM CHLORIDE 0.9% 500 ML IV SCH ×2 (05:23→15:28)
[2019-01-07 06:11] LABS: Basophils # (auto) 0.03 K/uL (0-0.2); Basophils % (auto) 0.4 %; Eosinophils # (auto) 0.15 K/uL (0-0.5); Eosinophils % (auto) 1.8 %; Hematocrit (blood only) 39.4 % (42-52); Hemoglobin 13.7 g/dL (14.0-18.0); Immature Granulocytes # (auto) 0.02 K/uL (0.00-0.02); Immature Granulocytes % (auto) 0.2 %; Lymphocytes # (auto) 2.87 K/uL (1.2-3.4); Lymphocytes % (auto) 33.8 %; Mean Corpuscular Hgb Conc 34.8 g/dL (32-36); Monocytes % (auto) 8.2 %; Neutrophils # (auto) 4.72 K/uL (1.4-6.5); Neutrophils % (auto) 55.6 %; Platelet Count 270 K/uL (130-400); RDW Coefficient of Variation 13.2 % (11.5-14.5); RDW Standard Deviation 45.6 fL (36.4-46.3); Red Blood Count 4.19 M/uL (4.7-6.1); White Blood Count 8.49 K/uL (4.8-10.8)
[2019-01-07 06:32] LABS: Prothrombin Time 10.7 Seconds (9.0-12.0)
[2019-01-07 06:35] LABS: Albumin Level 3.3 gm/dl (3.4-5.0); BUN Creatinine Ratio 22.9 (10-20); Calcium 8.6 mg/dl (8.5-10.1); Creatinine Clr Calc Pharmacy 184.3 ml/min; Est GFR (African American) 124.5; Est GFR (Non-African American) 107.4; Potassium 4.2 mmol/L (3.5-5.1)
[2019-01-07 06:38] LABS: Albumin Globulin Ratio 1.1 (0.9-2); Bilirubin,Total 0.5 mg/dl (0.2-1); Total Protein 6.3 gm/dl (6.4-8.2)
[2019-01-07] MEDS: INSULIN ASPART 100 UNITS/ML 3 ML PEN SC SCH ×4 (08:42→20:45)
[2019-01-07] MEDS: MoRPHine SULFATE 4 MG/ML 1 ML CARP\\VIAL IV PRN ×2 (08:59→15:28)
[2019-01-07] MEDS: NSS + 20MEQ KCL 20 MEQ/1,000 ML BAG IV SCH ×2 (09:43→22:26)
--- NOTE | 2019-01-07 12:39 | Hospitalist Progress Note ---
Date of Service January 07, 2019 Assessment & Plan (1) Diabetic ulcer of ankle: Diabetic ulcers of right ankle/history of ORIF with pins/reported history of bone infection in the past- No records available for patient's medical history. Started yesterday Imipenam/Cilastatine Q6 hr and Vancomycine 1.5 mg to cover for Staph aureus that pt right ankle wound has been growing and with a trough between 15-20. Appreciated orthopedic recommendations and follow up. (2) Neutrophilic leukocytosis: See above (3) Diabetes mellitus: A1c Accu- 6.7. Continue accuchecks AC&HS, and SSI before meals and at bedtime with NovoLog coverage per scale. (4) Status post ORIF of fracture of ankle: See above (5) Obesity (BMI 30-39.9): Counseling Subjective Pt is resting in the bed. No acute event over night.Slowly improving PO intake. Pt is afebrile. Pt informed that his blood cultures are negative so far and that his wound culture grew staph aureus and G-bacilli. Review of Systems Review of Systems: All systems reviewed & are unremarkable except as noted in HPI & below Physical Exam Physical Exam: Diabetic ulcer located at the anterior and medial aspect of the right ankle. Induration approximately 3cm x 2.5 cm in size and depth of 1 cm. Constitutional: WD/WN, vitals as above well developed, well nourished, + well hydrated, comfortable and + overweight Eyes: PERRL, conjunctivae normal, anicteric sclerae Neck: trachea midline, no thyromegaly Respiratory: normal respiratory effort, lungs clear to auscultation Cardiovascular: RRR, no murmur, no edema Chest (Breasts): normal inspection/palpation of breasts Gastrointestinal (Abdomen): normal bowel sounds, soft, nontender, no hepatosp lenomegaly Musculoskeletal: no cyanosis or clubbing, extremities motor strength 5/5 Skin: + ulcer, + hair thinning and + nails dystrophic Neurologic: patellar DTR's 2+ bilat, sensation intact Psychiatric: A+Ox3, euthymic affect Lymphatic: no cervical or axillary lymphadenopathy Results & Data Vital Signs (Past 12 Hours) Vital Signs Temp Pulse Resp BP Pulse Ox 01/07/19 07:54 37.0 C 56 L 20 122/71 97 PG Care Time/CCT Total # of Minutes Spent Total Time Spent with Patient: Total time spent is greater than 50% in coordination of care (as documented) at patient's floor/unit and/or counseling patient:
[2019-01-08] MEDS: IMIPENEM/CILASTATIN SODIUM 500 MG in DEXTROSE 5% 100 ML IV SCH ×5 (00:01→23:25)
[2019-01-08] MEDS ORDERED: VANCOMYCIN TROUGH ONE (01:30)
[2019-01-08] MEDS: VANCOMYCIN HCL 1,500 MG in SODIUM CHLORIDE 0.9% 500 ML IV SCH ×2 (01:34→14:36)
[2019-01-08 02:16] LABS: Basophils # (auto) 0.04 K/uL (0-0.2); Basophils % (auto) 0.4 %; Eosinophils # (auto) 0.14 K/uL (0-0.5); Eosinophils % (auto) 1.6 %; Hematocrit (blood only) 39.9 % (42-52); Hemoglobin 13.8 g/dL (14.0-18.0); Immature Granulocytes # (auto) 0.02 K/uL (0.00-0.02); Immature Granulocytes % (auto) 0.2 %; Lymphocytes # (auto) 2.87 K/uL (1.2-3.4); Lymphocytes % (auto) 32.2 %; Mean Corpuscular Hgb Conc 34.6 g/dL (32-36); Mean Corpuscular Volume 91.5 fL (80-100); Mean Platelet Volume 8.9 fL (7.4-10.4); Monocytes # (auto) 0.53 K/uL (0.11-0.59); Monocytes % (auto) 5.9 %; Neutrophils # (auto) 5.32 K/uL (1.4-6.5); Neutrophils % (auto) 59.7 %; Platelet Count 234 K/uL (130-400); RDW Coefficient of Variation 12.9 % (11.5-14.5); Red Blood Count 4.36 M/uL (4.7-6.1); White Blood Count 8.92 K/uL (4.8-10.8)
[2019-01-08 02:20] LABS: Prothrombin Time 10.5 Seconds (9.0-12.0)
[2019-01-08 02:29] LABS: Albumin Level 3.3 gm/dl (3.4-5.0); Calcium 8.6 mg/dl (8.5-10.1); Creatinine Clr Calc Pharmacy 171.5 ml/min; Est GFR (African American) 120.9; Est GFR (Non-African American) 104.3
[2019-01-08 02:32] LABS: Bilirubin,Total 0.4 mg/dl (0.2-1); C Reactive Protein 0.63 mg/dl (0-0.29); Globulin 3.2 gm/dl (2.5-4.0); Total Protein 6.5 gm/dl (6.4-8.2)
[2019-01-08] MEDS: NSS + 20MEQ KCL 20 MEQ/1,000 ML BAG IV SCH ×2 (04:03→14:36)
[2019-01-08] MEDS: INSULIN ASPART 100 UNITS/ML 3 ML PEN SC SCH ×4 (08:44→21:01)
[2019-01-08] MEDS: MoRPHine SULFATE 4 MG/ML 1 ML CARP\\VIAL IV PRN ×2 (08:45→21:02)
--- NOTE | 2019-01-08 09:37 | Pharmacy Report ---
Pharmacy Abx Dose Short Note - Date of Service January 08, 2019 - Assessment & Plan Assessment 58 year old M receiving Vancomycin 1500mg IV q10h for treatment of diabetic ulcer of the ankle. Day # 3 of antimicrobial therapy. No suspected osteo involvement. Laboratory Tests 01/08/19 01:55 Vancomycin Trough 16.2 Plan Vancomycin * Trough level of 16.2 mcg/mL is slightly supratherapeutic for this indication. Given the patient's risk for drug accumulation with a BMI ~33, will extend dosing interval. * Change to 1500 mg IV every 12 hours * Goal trough level ~15 mcg/mL for cellulitis. * Trough or random level ordered for: 01/10/19 before 0200 dose. Pharmacy will continue to follow and will adjust dose/frequency as necessary. Thank you.
--- NOTE | 2019-01-08 17:11 | Hospitalist Progress Note ---
Date of Service January 08, 2019 Assessment & Plan (1) Diabetic ulcer of ankle: Diabetic ulcers of right ankle/history of ORIF with pins/reported history of bone infection in the past- No records available for patient's medical history. Started yesterday Imipenam/Cilastatine Q6 hr and Vancomycine 1.5 mg to cover for Staph aureus that pt right ankle wound has been growing and with a trough between 15-20. Appreciated orthopedic recommendations and follow up. (2) Neutrophilic leukocytosis: See above (3) Diabetes mellitus: A1c Accu- 6.7. Continue accuchecks AC&HS, and SSI before meals and at bedtime with NovoLog coverage per scale. (4) Status post ORIF of fracture of ankle: See above (5) Obesity (BMI 30-39.9): Counseling Subjective Pt seen and examined at the bedside. Afebrile, no acute events overnight. Slowly improving. Non weight bearing right foot.Po intake is good. Pt reports regular BM-s. Pt denies fever, chills, chest pain, SOB, abdominal pain, frequency and urgency. Review of Systems Review of Systems: All systems reviewed & are unremarkable except as noted in HPI & below Physical Exam Constitutional: WD/WN, vitals as above well developed and well nourished Eyes: PERRL, conjunctivae normal, anicteric sclerae normal visual by confrontation ENMT: external ear and nose normal, oropharynx normal Respiratory: normal respiratory effort, lungs clear to auscultation Cardiovascular: RRR, no murmur, no edema Chest (Breasts): normal inspection/palpation of breasts Gastrointestinal (Abdomen): normal bowel sounds, soft, nontender, no hepatosplenomegaly Musculoskeletal: no cyanosis or clubbing, extremities motor strength 5/5 wound at the right ankle with purulent discharge 4x3.5 cm in size. Results & Data Vital Signs (Past 12 Hours) Vital Signs Temp Pulse Resp BP BP Pulse Ox 01/08/19 16:37 63 19 135/71 96 01/08/19 08:32 36.5 C 68 20 143/74 H 98 PG Care Time/CCT Total # of Minutes Spent Total Time Spent with Patient: Total time spent is greater than 50% in coordination of care (as documented) at patient's floor/unit and/or counseling patient:
--- NOTE | 2019-01-08 17:20 | Orthopedic Progress Note ---
Date of Service January 08, 2019 Assessment & Plan (1) Diabetic ulcer of ankle: Acute on chronic diabetic ankle ulceration, Suspect osteo/abcess, Continue IV abx, NWB RLE, Ice/elevation I+D Right medial and lateral malleoli ulcerations in OR Tomorrow with removal hardware medial malleolus including pins, screws and surgical wire.and possible removal of hardware. N.p.o. after midnight. Thank you for the consultation. Zeferino Vergara DO Subjective Patient seen in follow-up consultation for his right medial and lateral ankle ulcerations. He has been on IV antibiotics since admission. He is an intermittent ulceration and healing of the ankle over the last year. Physical Exam Physical Exam: Right ankle medial and lateral ulcerations with superficial skin loss. Local follow odor. Palpable pulses bilateral lower extremities. Chronic venous stasis changes bilateral lower extremities. Exposed hardware medial malleolus right ankle. Scant hair growth bilateral lower extremities. Limited range of motion right ankle compared to left. Decreased sensation stocking distribution bilateral lower extremities. Results & Data Vital Signs (Past 12 Hours) Vital Signs Temp Pulse Resp BP BP Pulse Ox 01/08/19 16:37 63 19 135/71 96 01/08/19 08:32 36.5 C 68 20 143/74 H 98
[2019-01-08] MEDS ORDERED: clonazePAM 0.5 MG TAB PO STA (20:40)
[2019-01-09] MEDS: NSS + 20MEQ KCL 20 MEQ/1,000 ML BAG IV SCH ×3 (00:48→20:42)
[2019-01-09] MEDS: VANCOMYCIN HCL 1,500 MG in SODIUM CHLORIDE 0.9% 500 ML IV SCH ×2 (01:08→13:44)
[2019-01-09] MEDS: IMIPENEM/CILASTATIN SODIUM 500 MG in DEXTROSE 5% 100 ML IV SCH ×4 (05:29→23:52)
[2019-01-09 06:26] LABS: Albumin Level 3.4 gm/dl (3.4-5.0); BUN Creatinine Ratio 22.9 (10-20); Calcium 8.8 mg/dl (8.5-10.1); Creatinine Clr Calc Pharmacy 152.4 ml/min; Est GFR (African American) 115.1; Est GFR (Non-African American) 99.4; Magnesium 2.1 mg/dl (1.8-2.4); Potassium 4.4 mmol/L (3.5-5.1)
[2019-01-09 06:29] LABS: Albumin Globulin Ratio 1.1 (0.9-2); Bilirubin,Total 0.4 mg/dl (0.2-1); C Reactive Protein 0.49 mg/dl (0-0.29); Globulin 3.1 gm/dl (2.5-4.0); Total Protein 6.5 gm/dl (6.4-8.2)
[2019-01-09] MEDS ORDERED: ONDANSETRON INJ 2 MG/ML 2 ML VIAL ONE (08:11)
[2019-01-09] MEDS ORDERED: LIDOCAINE HCL 2% 2 ML VIAL/AMP(20MG/ML) INFIL ONE (08:11)
[2019-01-09] MEDS ORDERED: PROPOFOL IV EMULSION 10 MG/ML 20 ML VIAL IV ONE (08:11)
[2019-01-09] MEDS ORDERED: DEXAMETHASONE SOD INJ 4 MG/ML VIAL ONE (08:11)
[2019-01-09] MEDS ORDERED: MIDAZOLAM HCL 1 MG/ML 2ML VIAL ONE (08:11)
[2019-01-09] MEDS ORDERED: fentaNYL citrate 100 MCG/2 ML VIAL ONE ×2 (08:12→09:34)
[2019-01-09] MEDS: INSULIN ASPART 100 UNITS/ML 3 ML PEN SC SCH ×4 (08:31→20:42)
--- NOTE | 2019-01-09 08:33 | Anesthesiology Consultation ---
Date of Service January 09, 2019 Assessment & Plan (1) Encounter for pre-operative examination: Chart Review Chart Review: Acceptable Risk for Surgery History Surgery Operation Date: 01/09/19 11:30 Proposed Procedures p Removal Hardware(Right) - Zeferino Vergara DO Height/Weight Height: 6 ft 6 in Weight: 127.5 kg Allergies Allergy/AdvReac Type Severity Reaction Status Date / Time bee venom protein (honey bee) Allergy Severe Anaphylaxis Verified 01/06/19 04:40 Penicillins Allergy Severe Anaphylaxis Verified 01/06/19 04:40 Medications Home Medications Medication Instructions Recorded Confirmed Last Taken Unobtainable 01/06/19 01/06/19 Unknown Active Medications Generic Name Dose Route Start Last Admin Trade Name Freq PRN Reason Stop Dose Admin Acetaminophen 1,000 mg 01/06/19 02:26 01/06/19 12:55 Ofirmev IV 02/05/19 02:25 1,000 mg Q8H PRN Administration Pain or Fever Potassium Chloride/Sodium Chloride 20 meq in 1,000 mls @ 100 mls/hr 01/06/19 02:26 01/09/19 00:48 Normal Saline W/20 Meq Kcl IV 02/05/19 02:25 100 mls/hr .Q10H ENEIDA Administration Imipenem/Cilastatin Sodium 500 110 mls @ 100 mls/hr 01/06/19 12:00 01/09/19 07:11 mg/ Dextrose IV 01/16/19 11:59 Infused Q6 ENEIDA Infusion Protocol Vancomycin HCl 1,500 mg/ 530 mls @ 200 mls/hr 01/08/19 14:00 01/09/19 03:51 Sodium Chloride IV 01/16/19 13:59 Infused Q12H ENEIDA Infusion Insulin Aspart 0 units 01/06/19 07:30 01/09/19 08:31 Novolog Flexpen SC 02/05/19 07:29 Not Given ACHS ENEIDA Morphine Sulfate 4 mg 01/06/19 11:03 01/08/19 21:02 Morphine Sulfate IV 01/20/19 11:02 4 mg Q4H PRN Administration Pain NPO Date Last Intake of Fluids: 01/08/09 Time Last Intake of Fluids: 23:59 Date Last Intake of Solids: 01/08/19 Past Medical History Medical History Diabetes mellitus (Chronic) Psoriatic arthritis (Chronic) Borderline hypertension Smoker Past Surgical History Surgical History History of open reduction and internal fixation (ORIF) procedure right ankle Hx of reduction of orbital fracture Social History Smoking Status: Former smoker Hx Alcohol Use: No Hx Substance Use: No Physical Exam Vital Signs Last Vital Signs Temp 36.8 C 01/09/19 08:20 Pulse 61 01/09/19 08:20 Resp 20 01/09/19 08:20 BP 114/69 01/09/19 08:20 Pulse Ox 92 01/09/19 08:20 Testing Laboratory Results 01/08/19 01:55 01/09/19 05:08 PT 10.5 Seconds (9.0-12.0) 01/08/19 01:55 INR 1.0 (0.9-1.1) 01/08/19 01:55 APTT 27.6 Seconds (21.0-31.0) 01/06/19 06:27 Hemoglobin A1c 6.7 % (4.5-5.6) H 01/06/19 06:27 Urine Color Yellow 01/06/19 05:00 Urine Appearance Clear (Clear) 01/06/19 05:00 Urine pH 7.0 (4.5-7.5) 01/06/19 05:00 Ur Specific [place] 1.018 (1.000-1.030) 01/06/19 05:00 Urine Protein Negative (Negative) 01/06/19 05:00 Urine Glucose (UA) 2+ (Negative) H 01/06/19 05:00 Urine Ketones Negative (Negative) 01/06/19 05:00 Urine Nitrite Negative (Negative) 01/06/19 05:00 Ur Leukocyte Esterase Negative (Negative) 01/06/19 05:00 01/06/19 01:46 Gram Stain - Final Ankle,Right Wound Culture - Preliminary Alcaligenes faecalis Staphylococcus aureus Staphylococcus aureus#2 01/07/19 05:37 Aerobic Blood Culture - Preliminary Blood No growth in Aerobic bottle after 48 hours. Anaerobic Blood Culture - Preliminary No growth in Anaerobic bottle after 48 hours. 01/05/19 23:49 Aerobic Blood Culture - Preliminary Blood No growth in Aerobic bottle after 48 hours. Anaerobic Blood Culture - Preliminary Staphylococcus species 01/05/19 23:24 Aerobic Blood Culture - Preliminary Blood No growth in Aerobic bottle after 48 hours. Anaerobic Blood Culture - Preliminary No growth in Anaerobic bottle after 48 hours. 01/09/19 01/08/19 08:00 20:40 POC Glucose 123 H 120 H Electrocardiogram Date: 01/09/19 Chest X-Ray Date: 01/06/19 Findings: + NAD and + cardiomegaly (mild)
[2019-01-09] MEDS ORDERED: HYDROmorphone INJ 1 MG/ML SYRINGE IV PRN (08:42)
[2019-01-09] MEDS ORDERED: ATROPINE SULFATE 0.1 MG/ML 10ML SYR IV PRN (08:42)
[2019-01-09] MEDS ORDERED: KETOROLAC 30 MG/ML VIAL IV PRN (08:42)
[2019-01-09] MEDS ORDERED: LABETALOL HCL IV 5 MG/ML 20ML IV PRN (08:42)
[2019-01-09] MEDS ORDERED: ONDANSETRON INJ 2 MG/ML 2 ML VIAL IV PRN (08:42)
--- NOTE | 2019-01-09 08:59 | History & Physical Bridge Note ---
Date of Service January 09, 2019 History & Physical Bridge Note I have examined the patient, reviewed the History & Physical and in the interval since the performance of the History & Physical I have noted the following changes of clinical significance: no changes noted
[2019-01-09] MEDS ORDERED: BACITRACIN INJ 50,000 UNIT VIAL ONE ×2 (09:02→09:55)
[2019-01-09] MEDS ORDERED: ePHEDrine sulfate 50 MG/ML SYR ONE (09:34)
[2019-01-09] MEDS ORDERED: BUPIVACAINE 0.5 % 5 MG/1 ML MPF 30ML VIAL ONE (09:34)
--- NOTE | 2019-01-09 10:18 | Fluoroscopy Report ---
INTRAOPERATIVE RADIOGRAPHS CLINICAL HISTORY: Right ankle hardware removal. Fluoroscopy time: 5 seconds. FINDINGS: 2 spot fluoroscopic views of the right ankle are correlated with radiographs dated 9. A cortical lag screw and wires within the medial malleolus have been removed. No acute fracture is identified in the provided images. Degenerative spurring is noted along the anterior and posterior a spect of the tibial plafonds. IMPRESSION: Intraoperative images from right ankle hardware removal as above. Electronically signed by: Kristofer Jarrett M.D. 01/09/2019 10:16 AM
--- NOTE | 2019-01-09 10:26 | Post Operative Brief Note ---
Immediate Post Op Note v1 Date of Surgery January 09, 2019 Pre & Post Diagnosis Operation Date: 01/09/19 11:30 Pre-Op Diagnosis: Right ankle infected deep hardware medial malleolus, diabetic ulcer lateral malleolus, DIABETIC ULCER medial malleolus involving fascia, skin and subcutaneous tissue. Medial ankle ulceration with periostitis medial malleolus Post-Op Diagnosis: Right ankle infected deep hardware medial malleolus, diabetic ulcer lateral malleolus, DIABETIC ULCER medial malleolus involving fascia, skin and subcutaneous tissue. Medial ankle ulceration with periostitis medial malleolus Procedure Operation Date: 01/09/19 11:30 Actual Procedures p Right Ankle Removal infected hardware Medial malleolus via 3 separate location incisions, Irrigation and Debridement Skin/Fascia/periosteum and bone medial malleolus and debridement skin/fascia/subcutaneous tissue lateral malleolus (Right) - Zeferino Vergara DO Surgeon Zeferino Vergara DO Operating Room Coordinator None Estimated Blood Loss 5 Findings Consistent with Post-Op Diagnosis Specimens Aerobic anaerobic Gram stain right ankle deep medial. Infected hardware medial malleolus Anesthesia Type General Regional Complications none Disposition Accompanied Patient To Recovery: Yes Disposition: Recovery Room
--- NOTE | 2019-01-09 11:44 | Anesthesiology Progress Note ---
Date of Service January 09, 2019 Anesthesia Post Procedure Vital Signs Vital Signs: Temp Pulse Pulse Resp BP BP Pulse Ox 01/09/19 11:37 59 L 18 110/70 97 01/09/19 11:00 36.7 C 63 16 114/60 97 01/09/19 10:50 61 14 109/57 L 94 01/09/19 10:40 63 14 115/69 94 01/09/19 10:30 69 14 88/39 L 95 01/09/19 10:20 36.4 C L 71 16 114/68 96 01/09/19 08:20 36.8 C 61 20 114/69 92 01/08/19 22:59 36.9 C 66 18 133/74 96 01/08/19 16:37 63 19 135/71 96 Pain Intensity Right Ankle: Pain Intensity: 4 Transfer of Care Handoff Completed per policy Notes Mental Status: alert / awake / arousable Patient Amnestic to Procedure: Yes Nausea / Vomiting: adequately controlled Pain: adequately controlled Airway Patency, RR, SpO2: stable & adequate BP & HR: stable & adequate Hydration State: stable & adequate Anesthetic Complications: no major complications apparent
--- NOTE | 2019-01-09 15:23 | Hospitalist Progress Note ---
Date of Service January 09, 2019 Assessment & Plan (1) Diabetic ulcer of ankle: Diabetic ulcers of right ankle/history of ORIF with pins/reported history of bone infection in the past- No records available for patient's medical history. Started yesterday Imipenam/Cilastatine Q6 hr and Vancomycine 1.5 mg to cover for Staph aureus that pt right ankle wound has been growing and with a trough between 15-20. Appreciated orthopedic recommendations and follow up. (2) Neutrophilic leukocytosis: See above (3) Diabetes mellitus: A1c Accu- 6.7. Continue accuchecks AC&HS, and SSI before meals and at bedtime with NovoLog coverage per scale. (4) Status post ORIF of fracture of ankle: See above (5) Obesity (BMI 30-39.9): Counseling Subjective Pt seen and examined at the bedside. He is now s/p right ankle removal infected harware by Dr. Vergara-orthopedics and he tolerated procedure well. Pt denies fever, chills, chest pain, SOB , abdominal pain, frequency and urgency. He is craving for cigarettes. Offered nicotine patch and pt advised to quit smoking. Review of Systems Review of Systems: All systems reviewed & are unremarkable except as noted in HPI & below Physical Exam Constitutional: WD/WN, vitals as above well developed and well nourished Eyes: PERRL, conjunctivae normal, anicteric sclerae ENMT: external ear and nose normal, oropharynx normal Neck: trachea midline, no thyromegaly Respiratory: normal respiratory effort, lungs clear to auscultation Cardiovascular: RRR, no murmur, no edema Chest (Breasts): normal inspection/palpation of breasts Gastrointestinal (Abdomen): normal bowel sounds, soft, nontender, no hepatosplenomegaly Musculoskeletal: Right lower extremity with dressing and elevated. No oozing noted Skin: no rashes, warm and dry Neurologic: patellar DTR's 2+ bilat, sensation intact Psychiatric: A+Ox3, euthymic affect Genitourinary: no testicular masses, no penis abnormality Lymphatic: no cervical or axillary lymphadenopathy Results & Data Vital Signs (Past 12 Hours) Vital Signs Temp Pulse Pulse Resp BP BP Pulse Ox 01/09/19 14:09 61 19 100/54 L 96 01/09/19 13:23 36.5 C 77 19 110/67 96 01/09/19 12:21 63 16 104/64 96 01/09/19 11:37 59 L 18 110/70 97 01/09/19 11:10 36.5 C 65 14 130/74 95 01/09/19 11:00 36.7 C 63 16 114/60 97 01/09/19 10:50 61 14 109/57 L 94 01/09/19 10:40 63 14 115/69 94 01/09/19 10:30 69 14 88/39 L 95 01/09/19 10:20 36.4 C L 71 16 114/68 96 01/09/19 08:20 36.8 C 61 20 114/69 92 PG Care Time/CCT Total # of Minutes Spent Total Time Spent with Patient: Total time spent is greater than 50% in coordination of care (as documented) at patient's floor/unit and/or counseling patient:
[2019-01-09] MEDS: MoRPHine SULFATE 4 MG/ML 1 ML CARP\\VIAL IV PRN ×2 (16:38→20:37)
[2019-01-09] MEDS: NICOTINE 21 MG/24 HR TDSY TD SCH (16:39)
--- NOTE | 2019-01-09 20:03 | Operative Report ---
DATE OF OPERATION: 01/09/2019 PREOPERATIVE DIAGNOSES: 1. Right ankle infected deep hardware, medial malleolus. 2. Diabetic ulceration medial malleolus involving skin, fascia, subcutaneous tissue and periosteum measuring approximately 6 cm x 3 cm. 3. Diabetic ulceration of the lateral malleolus involving skin, fascia and subcutaneous tissue measuring 3 cm x 1.5 cm. POSTOPERATIVE DIAGNOSES: 1. Right ankle infected deep hardware, medial malleolus. 2. Diabetic ulceration medial malleolus involving skin, fascia, subcutaneous tissue and periosteum measuring approximately 6 cm x 3 cm. 3. Diabetic ulceration of the lateral malleolus involving skin, fascia and subcutaneous tissue measuring 3 cm x 1.5 cm. PROCEDURES: 1. Right ankle removal of infected hardware, medial malleolus with 3 separate sites incisions. 2. Irrigation and debridement of skin, fascia, periosteum and bone of the medial malleolus. 3. Debridement of skin, fascia and subcutaneous tissue of the lateral malleolus. SURGEON: Zeferino Vergara DO HAND SEWER: None. ANESTHESIA: General regional. SPECIMENS: Aerobic, anaerobic, Gram stain, deep medial malleolus and infected hardware, medial malleolus. DRAINS: None. COMPLICATIONS: None. BLOOD LOSS: 5 mL. PERTINENT HISTORY: This is a 58-year-old gentleman who had a prior ORIF of a medial malleolus fracture performed in [place] approximately 8 years ago. He had issues with the ankle and lower extremity since that time he states. He has had multiple episodes of small draining ulcers along the medial and now lateral aspects of his ankle over the last year, possibly longer. He presents with a draining ulceration and skin loss medial and some lateral right ankle. He was placed in the hospital on I.V. antibiotics. Orthopedics had been consulted. The patient was scheduled for surgery as indicated. All potential risks, benefits, complications, alternatives, rehab, potential for incomplete relief of symptoms, need for further surgery, deep venous thrombosis, pulmonary embolism, , persistent pain, swelling, scarring, weakness, neurovascular injury, wound complications, bone fracture or need for further surgery or amputation were discussed with the patient. The patient decided to proceed with the procedure as indicated. The patient was taken to operative suite and placed supine on the Operating Room table. I reviewed consent and after identification of proper operative site, the patient was anesthetized, LMA was placed. Tourniquet was placed high on the right thigh over cast padding. Right lower extremity was then sterilely prepped and draped in the usual fashion, elevated and tourniquet inflated to 350 mmHg. There was no exsanguination due to the nature of the chronic infection. A 15 blade scalpel was used to make an incision centered over the medial malleolus proximally at the site of screw insertion. The screw head was readily visualized. The screw was then removed. The screw hole was then curetted with a curette and the surrounding subcutaneous tissue and fascia were also curetted. The ulceration measurement noted above was then debrided with a curette and rongeur down to bleeding tissue. Any fibrous exudate was then excised with 15 blade scalpel and a rongeur. The 15 blade was used to make an incision at the distal aspect of the medial malleolus on the anterior aspect. Incision was deepened to the subcutaneous tissue down to the level of the K-wire. Ragnell retractors were placed in the incision. K-wire was visualized and removed with a heavy needle non cdl driver. Next, a posteromedial malleolus incision was made with a 15 blade scalpel and was deepened to the subcutaneous tissues down to the level of the K wires. The K-wires were palpated and then removed with a heavy needle non cdl driver. The tension band wire distally was then carefully dissected with tenotomy scissor. The tension band wire was then unwound with a heavy needle non cdl driver and then removed to the proximal incision, a total of 3 incisions medially. Next, periosteum was then debrided at the proximal incision site back to healthy appearing periosteum. The medial malleolar bone was also debrided with a rongeur and a curette. Next, the medial ulcer and incisions were all copiously irrigated with pulsatile lavage, 3 liters with bacitracin. Once this was completed, the medial incisions were then closed using interrupted 3-0 nylon sutures. Next, attention was then directed toward the lateral ulceration measurements given above. A curette and rongeur were used to debride the ulceration till healthy bleeding tissue was apparent. The fibrinous exudate and fibrous tissue were then excised. Next, the skin, fascia and subcutaneous tissue were then sharply debrided with a 15 blade scalpel and curette. Once this was completed, pulsatile lavage with 3 liters of sterile normal saline with bacitracin was used to cleanse the ulceration. Once this was completed, the incisions and both ulcerations were injected with approximately 20 mL of 0.5% Marcaine plain. A sterile compressive dressing consisting of Xeroform gauze, sterile 4 x 4's, ABD pads, Webril and Perry wrap were applied. Final radiographs were obtained in AP and lateral projections demonstrating complete removal of all hardware. The tourniquet was released. The patient was awakened and taken to recovery in a stable condition. I attest to the content of the Intraoperative Record and any orders documented therein. Any exception s are noted below.
[2019-01-09] MEDS ORDERED: ACETAMINOPHEN SOL 650 MG/20.3 ML UDC PO PRN (22:02)
[2019-01-09] MEDS: OXYCODONE HCL IR 5 MG TAB (IMMEDIATE RELEASE) PO PRN (23:59)
[2019-01-10] MEDS: MoRPHine SULFATE 4 MG/ML 1 ML CARP\\VIAL IV PRN ×4 (01:04→23:47)
[2019-01-10] MEDS ORDERED: VANCOMYCIN TROUGH ONE (01:30)
[2019-01-10] MEDS: VANCOMYCIN HCL 1,500 MG in SODIUM CHLORIDE 0.9% 500 ML IV SCH ×2 (02:06→14:38)
[2019-01-10 02:13] LABS: Albumin Level 3.3 gm/dl (3.4-5.0); Calcium 8.4 mg/dl (8.5-10.1); Creatinine Clr Calc Pharmacy 137.2 ml/min; Est GFR (African American) 110.3; Est GFR (Non-African American) 95.1; Potassium 4.2 mmol/L (3.5-5.1)
[2019-01-10 02:16] LABS: Albumin Globulin Ratio 1.1 (0.9-2); Bilirubin,Total 0.2 mg/dl (0.2-1); C Reactive Protein 0.42 mg/dl (0-0.29); Globulin 3.1 gm/dl (2.5-4.0); Total Protein 6.4 gm/dl (6.4-8.2)
[2019-01-10] MEDS: NSS + 20MEQ KCL 20 MEQ/1,000 ML BAG IV SCH ×2 (04:55→08:42)
[2019-01-10] MEDS: IMIPENEM/CILASTATIN SODIUM 500 MG in DEXTROSE 5% 100 ML IV SCH ×4 (05:47→23:47)
[2019-01-10] MEDS: OXYCODONE HCL IR 5 MG TAB (IMMEDIATE RELEASE) PO PRN ×3 (07:40→20:49)
--- NOTE | 2019-01-10 08:24 | Pharmacy Report ---
Pharmacy Abx Dose Short Note - Date of Service January 10, 2019 - Assessment & Plan A/P Trough prior to Css subtherapeutic, 6.6mcg/mL. Doses and trough ordered appropriately. Will increase dosing interval back to q10h: vanco 1500mg q10 set to start at noon. Will order trough for 01/11/19 @1730, reflective of css. Goal trough 10-20mcg/mL Pharmacy will continue to follow and will adjust dose/frequency as necessary. Thank you.
--- NOTE | 2019-01-10 08:30 | Orthopedic Progress Note ---
Date of Service January 10, 2019 Assessment & Plan (1) Diabetic ulcer of ankle: POD 1 s/p 1. Right ankle removal of infected hardware, medial malleolus with 3 separate sites incisions. 2. Irrigation and debridement of skin, fascia, periosteum and bone of the medial malleolus. 3. Debridement of skin, fascia and subcutaneous tissue of the lateral malleolus. PT/OT - PWB with walker. Continue IV antibx Plan for dressing change 01/11/19 Subjective POD 1 s/p 1. Right ankle removal of infected hardware, medial malleolus with 3 separate sites incisions.2. Irrigation and debridement of skin, fascia, periosteum and bone of the medial malleolus.3. Debridement of skin, fascia and subcutaneous tissue of the lateral malleolus. Pt lying in bed sleeping. Easily awoken. States the foot/ankle is sore this AM but pain is controlled. No other complaints at this time. Physical Exam Physical Exam: Dressings are C/D/I. Toes are mobile. Decreased sensation which he had prior. Results & Data Vital Signs (Past 12 Hours) Vital Signs Temp Pulse Pulse Resp BP Pulse Ox 01/10/19 07:50 36.6 C 58 L 18 114/68 96 01/10/19 03:45 36.5 C 65 16 108/63 99 01/09/19 23:35 36.5 C 63 18 130/64 98 Laboratory Results Laboratory Results WBC 8.92 K/uL (4.8-10.8) 01/08/19 01:55 RBC 4.36 M/uL (4.7-6.1) L 01/08/19 01:55 Hgb 13.8 g/dL (14.0-18.0) L 01/08/19 01:55 Hct 39.9 % (42-52) L 01/08/19 01:55 MCV 91.5 fL (80-100) 01/08/19 01:55 MCH 31.7 pg (25-34) 01/08/19 01:55 MCHC 34.6 g/dL (32-36) 01/08/19 01:55 RDW Std Deviation 43.0 fL (36.4-46.3) 01/08/19 01:55 RDW Coeff of Susanne 12.9 % (11.5-14.5) 01/08/19 01:55 Plt Count 234 K/uL (130-400) 01/08/19 01:55 MPV 8.9 fL (7.4-10.4) 01/08/19 01:55 Immature Gran % (Auto) 0.2 % 01/08/19 01:55 Neut % (Auto) 59.7 % 01/08/19 01:55 Lymph % (Auto) 32.2 % 01/08/19 01:55 [place] % (Auto) 5.9 % 01/08/19 01:55 Eos % (Auto) 1.6 % 01/08/19 01:55 Baso % (Auto) 0.4 % 01/08/19 01:55 Immature Gran # (Auto) 0.02 K/uL (0.00-0.02) 01/08/19 01:55 Neut # (Auto) 5.32 K/uL (1.4-6.5) 01/08/19 01:55 Lymph # (Auto) 2.87 K/uL (1.2-3.4) 01/08/19 01:55 [place] # (Auto) 0.53 K/uL (0.11-0.59) 01/08/19 01:55 Eos # (Auto) 0.14 K/uL (0-0.5) 01/08/19 01:55 Baso # (Auto) 0.04 K/uL (0-0.2) 01/08/19 01:55 ESR 13 mm/hr (0-14) 01/10/19 01:44 PT 10.5 Seconds (9.0-12.0) 01/08/19 01:55 INR 1.0 (0.9-1.1) 01/08/19 01:55 APTT 27.6 Seconds (21.0-31.0) 01/06/19 06:27 PTT Ratio 1.0 01/06/19 06:27 Sodium 139 mmol/L (136-145) 01/10/19 01:44 Potassium 4.2 mmol/L (3.5-5.1) 01/10/19 01:44 Chloride 108 mmol/L (98-107) H 01/10/19 01:44 Carbon Dioxide 25 mmol/L (21-32) 01/10/19 01:44 Anion Gap 6.0 (3-11) 01/10/19 01:44 BUN 21 mg/dl (7-18) H 01/10/19 01:44 Creatinine 0.90 mg/dl (0.6-1.4) 01/10/19 01:44 Est Cr Clr Drug Dosing 137.2 ml/min 01/10/19 01:44 Est GFR ( Amer) 110.3 01/10/19 01:44 Est GFR (Non-Af Amer) 95.1 01/10/19 01:44 BUN/Creatinine Ratio 23.0 (10-20) H 01/10/19 01:44 Glucose 114 mg/dl (70-99) H 01/10/19 01:44 POC Glucose 205 (70-99) H 01/10/19 08:13 Estimat Average Glucose 146 mg/dl 01/06/19 06:27 Hemoglobin A1c 6.7 % (4.5-5.6) H 01/06/19 06:27 Lactate 0.7 mmol/L (0.4-2.0) 01/05/19 23:24 Calcium 8.4 mg/dl (8.5-10.1) L 01/10/19 01:44 Magnesium 2.0 mg/dl (1.8-2.4) 01/10/19 01:44 Total Bilirubin 0.2 mg/dl (0.2-1) 01/10/19 01:44 AST 14 U/L (15-37) L 01/10/19 01:44 ALT 24 U/L (12-78) 01/10/19 01:44 Alkaline Phosphatase 111 U/L (45-117) 01/10/19 01:44 C-Reactive Protein 0.42 mg/dl (0-0.29) H 01/10/19 01:44 Total Protein 6.4 gm/dl (6.4-8.2) 01/10/19 01:44 Albumin 3.3 gm/dl (3.4-5.0) L 01/10/19 01:44 Globulin 3.1 gm/dl (2.5-4.0) 01/10/19 01:44 Albumin/Globulin Ratio 1.1 (0.9-2) 01/10/19 01:44 Procalcitonin < 0.05 ng/ml (0-0.5) 01/05/19 23:24 Urine Color Yellow 01/06/19 05:00 Urine Appearance Clear (Clear) 01/06/19 05:00 Urine pH 7.0 (4.5-7.5) 01/06/19 05:00 Ur Specific [place] 1.018 (1.000-1.030) 01/06/19 05:00 Urine Protein Negative (Negative) 01/06/19 05:00 Urine Glucose (UA) 2+ (Negative) H 01/06/19 05:00 Urine Ketones Negative (Negative) 01/06/19 05:00 Urine Blood Negative (Negative) 01/06/19 05:00 Urine Nitrite Negative (Negative) 01/06/19 05:00 Urine Bilirubin Negative (Negative) 01/06/19 05:00 Urine Urobilinogen Negative (Negative) 01/06/19 05:00 Ur Leukocyte Esterase Negative (Negative) 01/06/19 05:00 Nasal Screen MRSA (PCR) Negative (Negative) 01/06/19 05:00 Vancomycin Trough 6.6 mcg/ml (See Comment) 01/10/19 01:44
[2019-01-10] MEDS: NICOTINE 21 MG/24 HR TDSY TD SCH (08:46)
[2019-01-10] MEDS: INSULIN ASPART 100 UNITS/ML 3 ML PEN SC SCH ×4 (08:46→21:16)
[2019-01-10] MEDS: ENOXAPARIN INJ 40 MG/0.4 ML SYR SQ SCH (08:51)
[2019-01-10] MEDS ORDERED: Nursing to Pharmacy Communication ONE (16:37)
[2019-01-10] MEDS ORDERED: ACETAMINOPHEN 325 MG TAB PO PRN (16:42)
--- NOTE | 2019-01-10 21:35 | Hospitalist Progress Note ---
Date of Service January 10, 2019 Assessment & Plan (1) Diabetic ulcer of ankle: Diabetic ulcers of right ankle/history of ORIF with pins/reported history of bone infection in the past- No records available for patient's medical history. will continue on Imipenam/Cilastatine Q6 hr and Vancomycin Appreciated orthopedic recommendations and follow up. Will consult ID for further discharge instructions. (2) Neutrophilic leukocytosis: See above This has improved. (3) Diabetes mellitus: A1c Accu- 6.7. Continue accuchecks AC&HS, and SSI before meals and at bedtime with NovoLog coverage per scale. (4) Status post ORIF of fracture of ankle: See above (5) Obesity (BMI 30-39.9): Counseling Spent 35 minutes in management of patient. This included above encounter, chart review, discussion with providers involved. Subjective 58 yo male reports no new complaints at this time. Review of Systems Review of Systems: All systems reviewed & are unremarkable except as noted in HPI & below Physical Exam Physical Exam: Constitutional: WD/WN, vitals as above well developed and well nourished Eyes: PERRL, conjunctivae normal, anicteric sclerae Neck: trachea midline, no thyromegaly Respiratory: normal respiratory effort, lungs clear to auscultation Cardiovascular: RRR, no murmur, no edema Chest (Breasts): normal inspection/palpation of breasts Gastrointestinal (Abdomen): normal bowel sounds, soft, nontender, no hepatosplenomegaly Musculoskeletal: Right lower extremity with dressing. No oozing noted Skin: no rashes, warm and dry Psychiatric: A+Ox3, euthymic affect Lymphatic: no cervical or axillary lymphadenopathy Results & Data Vital Signs (Past 12 Hours) Vital Signs Temp Pulse Resp BP Pulse Ox 01/10/19 15:07 36.9 C 53 L 18 117/67 96 01/10/19 11:44 36.6 C 52 L 18 124/68 97 PG Care Time/CCT Total # of Minutes Spent Total Time Spent with Patient: Total time spent is greater than 50% in coordin ation of care (as documented) at patient's floor/unit and/or counseling patient:
[2019-01-11] MEDS: VANCOMYCIN HCL 1,500 MG in SODIUM CHLORIDE 0.9% 500 ML IV SCH ×3 (01:00→20:34)
[2019-01-11] MEDS: IMIPENEM/CILASTATIN SODIUM 500 MG in DEXTROSE 5% 100 ML IV SCH ×4 (06:28→23:35)
[2019-01-11] MEDS: ENOXAPARIN INJ 40 MG/0.4 ML SYR SQ SCH (08:57)
[2019-01-11] MEDS: NICOTINE 21 MG/24 HR TDSY TD SCH (08:57)
[2019-01-11] MEDS: INSULIN ASPART 100 UNITS/ML 3 ML PEN SC SCH ×4 (08:58→21:23)
[2019-01-11 09:15] LABS: Albumin Level 3.4 gm/dl (3.4-5.0); BUN Creatinine Ratio 18.7 (10-20); C Reactive Protein 0.34 mg/dl (0-0.29); Calcium 9.1 mg/dl (8.5-10.1); Creatinine Clr Calc Pharmacy 169.2 ml/min; Est GFR (African American) 120.2; Est GFR (Non-African American) 103.7; Potassium 4.2 mmol/L (3.5-5.1)
[2019-01-11 09:20] LABS: Albumin Globulin Ratio 1.1 (0.9-2); Bilirubin,Total 0.4 mg/dl (0.2-1); Total Protein 6.4 gm/dl (6.4-8.2)
[2019-01-11] MEDS: MoRPHine SULFATE 4 MG/ML 1 ML CARP\\VIAL IV PRN ×2 (10:15→14:42)
--- NOTE | 2019-01-11 10:54 | Infectious Disease Consult ---
Date of Consultation January 11, 2019 Assessment & Plan (1) Osteomyelitis of right ankle: Patient with osteomyelitis of the ankle now status post removal of infected hardware with cultures from OR growing staph aureus, methicillin sensitive. Previous cultures also without collagenase. Would recommend combination of ceftriaxone 2 g daily for likely 6 weeks plus ciprofloxacin 500 mg orally twice daily. Will discuss with all involved. Will follow. (2) MSSA (methicillin susceptible Staphylococcus aureus) infection: History of Present Illness Reason for Consultation: Patient ordered imipenem Attending Physician: Samson Mauro History of Present Illness 58-year-old male with history of diabetes mellitus, obesity, status post construction accident 8 years ago with complicated right ankle fracture requiring open reduction and internal fixation. Over the last several months he has had ulceration of his medial ankle, and developed signs and symptoms of worsening infection, and now has undergone debridement and removal of hardware. Cultures are positive for methicillin sensitive staph aureus. Previously with culture positive for Alcaligenes. Currently being treated with IV vancomycin and imipenem. No report of fever or chills. Pain currently 3-4 out of 10 in intensity. Allergies Allergy/AdvReac Type Severity Reaction Status Date / Time bee venom protein (honey bee) Allergy Severe Anaphylaxis Verified 01/06/19 04:40 Penicillins Allergy Severe Anaphylaxis Verified 01/06/19 04:40 Home Medications Home Medications Medication Instructions Recorded Confirmed Type Unobtainable 01/06/19 01/06/19 History Patient History Medical History Diabetes mellitus (Chronic) Psoriatic arthritis (Chronic) Borderline hypertension Smoker Surgical History History of open reduction and internal fixation (ORIF) procedure right ankle Hx of reduction of orbital fracture Social History Preferred Language: Citizen Of [place] Stove Polisher Required: No Beliefs That Will Affect Care: None Current Living Situation: Other Current Living Situation Comment: inmate. Other Information That Helps Us Care for You: No Feels Safe at Home: Yes Safety Concerns: Feels Safe At This Time Smoking Status: Former smoker Hx Alcohol Use: No Hx Substance Use: No Review of Systems Review of Systems: All systems reviewed & are unremarkable except as noted in HPI & below Physical Exam Constitutional: WD/WN, vitals as above comfortable; no acute distress Eyes: PERRL, conjunctivae normal, anicteric sclerae ENMT: external ear and nose normal, oropharynx normal Neck: trachea midline, no thyromegaly neck nontender Respiratory: normal respiratory effort, lungs clear to auscultation normal percussion; does not use accessory muscles Cardiovascular: Rate/Rhythm: regular rate and regular rhythm Heart Sounds: normal S1 and normal S2; no gallop, no murmur and no cardiac rub Vessels: normal peripheral pulses; no JVD Gastrointestinal (Abdomen): normal bowel sounds, soft, nontender, no hepatosplenomegaly Musculoskeletal: no cyanosis or clubbing, extremities motor strength 5/5 Spine: thoracic spine normal to inspection and lumbar spine normal to inspection; no cervical spinal tenderness Skin: no rashes, warm and dry normal turgor Surgical dressing intact Neurologic: patellar DTR's 2+ bilat, sensation intact no focal motor deficits Psychiatric: A+Ox3, euthymic affect Orientation: cooperative Lymphatic: no cervical or axillary lymphadenopathy no inguinal lymphadenopathy Results & Data Vital Signs (Past 12 Hours) Vital Signs Temp Pulse Resp BP Pulse Ox 01/11/19 07:00 36.8 C 58 L 16 123/74 96 01/10/19 23:00 36.6 C 50 L 16 123/73 97 Laboratory Results BMP 01/11/19 08:15 Sodium 141 Potassium 4.2 Chloride 109 H Carbon Dioxide 27 BUN 14 Creatinine 0.73 Glucose 101 H Calcium 9.1 Liver Function 01/11/19 Range/Units 08:15 Total Bilirubin 0.4 (0.2-1) mg/dl AST 14 L (15-37) U/L ALT 24 (12-78) U/L Alkaline Phosphatase 107 (45-117) U/L Albumin 3.4 (3.4-5.0) gm/dl Diagnostic Findings Microbiology 01/09/19 09:51 Ankle,Right Gram Stain - Final 01/09/19 09:51 Ankle,Right Aerobic and Anaerobic Culture - Preliminary Staphylococcus aureus Staphylococcus aureus#2 01/05/19 23:49 Blood Aerobic Blood Culture - Final No growth in Aerobic bottle after 5 days. 01/05/19 23:49 Blood Anaerobic Blood Culture - Final Coag neg staph not lugdunensis Coag neg staph not lugdunensis#2 01/05/19 23:24 Blood Aerobic Blood Culture - Final No growth in Aerobic bottle after 5 days. 01/05/19 23:24 Blood Anaerobic Blood Culture - Final No growth in Anaerobic bottle after 5 days. 01/06/19 01:46 Ankle,Right Gram Stain - Final 01/06/19 01:46 Ankle,Right Wound Culture - Final Alcaligenes faecalis Staphylococcus aureus Staphylococcus aureus#2 01/07/19 05:37 Blood Aerobic Blood Culture - Preliminary No growth in Aerobic bottle after 48 hours. 01/07/19 05:37 Blood Anaerobic Blood Culture - Preliminary No growth in Anaerobic bottle after 48 hours. cc: ~ CT ankle RT wo con HISTORY: 58 years-old Male diabetic R ankle ulcers, pins previous fracture chronic diabetic ulcer of the right lower leg with history of prior surgery of the ankle. COMPARISON: Tibia and fibula radiographs of same day TECHNIQUE: Multiple axial CT images of the right ankle were obtained without the use of IV contrast. A dose lowering technique was used consistent with the principals of [facility]. FINDINGS: Soft tissue ulceration about the medial malleolus measures up to 3.1 x 0.4 x 4.3 cm. There is skin thickening within this distribution with moderate subcutaneous edema. No drainable fluid collection. Additional soft tissue ulceration is noted about the lateral hindfoot distribution, 1.1 x 0.5 x 2.7 cm without drainable fluid collection. Study is not tailored to assess the ligaments and tendons. Superficial venous varices noted about the lower leg and ankle. The tendons of the ankle appear grossly unremarkable. There are 2 K wires with cerclage wire and single cannulated screw noted about the medial malleolus. No evidence of hardware fracture or loosening. 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 Remote fracture deformity is of the distal tibia and fibula. Marginal spurring of the calcaneus. No acute fracture, dislocation, bony erosive change or osteochondral defect identified. No intra- articular loose body. IMPRESSION: 1. No acute fracture, dislocation or bony erosive changes to suggest acute osteomyelitis. 2. Healed remote fracture deformities of the ankle with hardware of the medial malleolus as above. No evidence of acute hardware complication. 3. Soft tissue ulcerations about the medial ankle and lateral hindfoot as above. Additionally, there is associated skin thickening within these distributions with subcutaneous edema suggestive of associated cellulitis. No opaque foreign body or drainable fluid collection. The above report was generated using voice recognition software. It may contain grammatical, syntax or spelling errors. Electronically signed by: Bienvenido Rocha M.D. 01/06/2019 7:45 AM Dictated: 01/06/19 0739
--- NOTE | 2019-01-11 14:41 | Orthopedic Progress Note ---
Date of Service January 11, 2019 Assessment & Plan (1) Diabetic ulcer of ankle: POD 2 s/p 1. Right ankle removal of infected hardware, medial malleolus with 3 separate sites incisions. 2. Irrigation and debridement of skin, fascia, periosteum and bone of the medial malleolus. 3. Debridement of skin, fascia and subcutaneous tissue of the lateral malleolus. Wound care consulted for assessment and possible need for wound vac. Don't feel further surgery needed at this time. PT/OT - PWB with walker. Continue IV antibx Daily dressing changes. Subjective POD 2 s/p I/D Right ankle with hardware removal. Pt lying in bed. Awake, alert. Talking on the phone. No new complaints. Pain in the right ankle off and on. Physical Exam Physical Exam: Dressings removed. Two open wounds noted. The large of the 2 on medial aspect without purulence/drainage. Mild erythema. Smaller wound on the lateral aspect of the ankle with out purulence/drainage. Mild erythema as well. Wounds redressed. Results & Data Vital Signs (Past 12 Hours) Vital Signs Temp Pulse Resp BP Pulse Ox 01/11/19 07:00 36.8 C 58 L 16 123/74 96
[2019-01-11] MEDS: OXYCODONE HCL IR 5 MG TAB (IMMEDIATE RELEASE) PO PRN ×2 (16:52→23:40)
[2019-01-11] MEDS ORDERED: VANCOMYCIN TROUGH ONE ×2 (17:30→19:30)
--- NOTE | 2019-01-11 23:30 | Hospitalist Progress Note ---
Date of Service January 11, 2019 Assessment & Plan (1) Diabetic ulcer of ankle: Diabetic ulcers of right ankle/history of ORIF with pins/reported history of bone infection in the past- No records available for patient's medical history. will continue on Imipenam/Cilastatine Q6 hr and Vancomycin Appreciated orthopedic recommendations and follow up. Will consult ID for further discharge instructions. These included: Recommend combination of ceftriaxone 2 g daily for likely 6 weeks plus ciprofloxacin 500 mg orally twice daily Awaiting to get this set up with case management. Patient may also need wound vac. (2) Neutrophilic leukocytosis: See above This has improved. (3) Diabetes mellitus: A1c Accu- 6.7. Continue accuchecks AC&HS, and SSI before meals and at bedtime with NovoLog coverage per scale. (4) Status post ORIF of fracture of ankle: See above (5) Obesity (BMI 30-39.9): Counseling Spent 25 minutes in management of patient. This included above encounter, chart review, discussion with providers involved. Subjective Patient has no new complaints today. Review of Systems Review of Systems: All systems reviewed & are unremarkable except as noted in HPI & below Physical Exam Physical Exam: Constitutional: WD/WN, vitals as above well developed and well nourished Eyes: PERRL, conjunctivae normal, anicteric sclerae Neck: trachea midline, no thyromegaly Respiratory: normal respiratory effort, lungs clear to auscultation Cardiovascular: RRR, no murmur, no edema Chest (Breasts): normal inspection/palpation of breasts Gastrointestinal (Abdomen): normal bowel sounds, soft, nontender, no hepatosplenomegaly Musculoskeletal: Right lower extremity with dressing. No oozing noted Skin: no rashes, warm and dry Psychiatric: A+Ox3, euthymic affect Lymphatic: no cervical or axillary lymphadenopathy Results & Data Vital Signs (Past 12 Hours) Vital Signs Temp Pulse Resp BP Pulse Ox 01/11/19 16:47 36.3 C L 53 L 18 97/55 L 92 PG Care Time/CCT Total # of Minutes Spent Total Time Spent with Patient: Total time spent is greater than 50% in coordination of care (as documented) at patient's floor/unit and/or counseling patient:
[2019-01-12] MEDS: IMIPENEM/CILASTATIN SODIUM 500 MG in DEXTROSE 5% 100 ML IV SCH (05:16)
[2019-01-12] MEDS ORDERED: VANCOMYCIN TROUGH ONE (05:30)
[2019-01-12 06:01] LABS: Albumin Level 3.5 gm/dl (3.4-5.0); Calcium 9.2 mg/dl (8.5-10.1); Creatinine Clr Calc Pharmacy 140.3 ml/min; Est GFR (African American) 111.3; Potassium 4.4 mmol/L (3.5-5.1)
[2019-01-12 06:04] LABS: Albumin Globulin Ratio 1.1 (0.9-2); Bilirubin,Total 0.5 mg/dl (0.2-1); C Reactive Protein 0.65 mg/dl (0-0.29); Globulin 3.3 gm/dl (2.5-4.0); Total Protein 6.8 gm/dl (6.4-8.2)
[2019-01-12] MEDS: VANCOMYCIN HCL 1,500 MG in SODIUM CHLORIDE 0.9% 500 ML IV SCH (06:21)
[2019-01-12] MEDS: ENOXAPARIN INJ 40 MG/0.4 ML SYR SQ SCH (08:44)
[2019-01-12] MEDS: INSULIN ASPART 100 UNITS/ML 3 ML PEN SC SCH ×4 (08:46→21:28)
[2019-01-12] MEDS: NICOTINE 21 MG/24 HR TDSY TD SCH (08:48)
[2019-01-12] MEDS: cefTRIAXone SODIUM 2,000 MG in DEXTROSE 5% 50 ML IV SCH (09:43)
[2019-01-12] MEDS: OXYCODONE HCL IR 5 MG TAB (IMMEDIATE RELEASE) PO PRN ×3 (09:49→23:20)
[2019-01-12] MEDS: CIPROFLOXACIN 500 MG TAB PO SCH ×2 (13:22→21:24)
--- NOTE | 2019-01-12 18:59 | Orthopedic Progress Note ---
Date of Service January 12, 2019 Assessment & Plan (1) Diabetic ulcer of ankle: POD 3 s/p 1. Right ankle removal of infected hardware, medial malleolus with 3 separate sites incisions. 2. Irrigation and debridement of skin, fascia, periosteum and bone of the medial malleolus. 3. Debridement of skin, fascia and subcutaneous tissue of the lateral malleolus. Wound care consulted for assessment and possible need for wound vac. No acute further surgery needed at this time. PT/OT - PWB with walker. Continue IV antibx As per infectious disease recommendations. Daily dressing changes. Subjective POD 3 s/p I/D Right ankle with hardware removal. Pt lying in bed. Awake, alert. No new complaints. Pain in the right ankle off and on Though improved. Physical Exam Physical Exam: Patient is awake and alert sitting up in his hospital room bed watching television. No acute distress. Right lower extremity clean dry dressing intact. Edema reduced right lower extremity. Minimal if any tenderness palpation along the ankle. Slightly improved range of motion right ankle. Results & Data Vital Signs (Past 12 Hours) Vital Signs Temp Pulse Resp BP Pulse Ox 01/12/19 15:24 36.8 C 63 16 118/74 97 01/12/19 07:46 36.9 C 54 L 18 113/62 94
--- NOTE | 2019-01-12 20:26 | Infectious Disease Progress Nt ---
Date of Service January 12, 2019 Assessment & Plan (1) Osteomyelitis of right ankle: Patient with osteomyelitis of the ankle now status post removal of infected hardware with cultures from OR growing staph aureus, methicillin sensitive. Previous cultures also with Alcaligenes. Recommend combination of ceftriaxone 2 g daily for likely 6 weeks plus ciprofloxacin 500 mg orally twice daily. Will discuss with all involved. Will follow. (2) MSSA (methicillin susceptible Staphylococcus aureus) infection: Subjective POD 3 s/p I/D Right ankle with hardware removal. Pt lying in bed. Awake, alert. No new complaints. Pain in the right ankle off and on Though improved. Physical Exam Constitutional: WD/WN, vitals as above comfortable; no acute distress Eyes: PERRL, conjunctivae normal, anicteric sclerae ENMT: external ear and nose normal, oropharynx normal Neck: trachea midline, no thyromegaly neck nontender Respiratory: normal respiratory effort, lungs clear to auscultation normal percussion; does not use accessory muscles Cardiovascular: Rate/Rhythm: regular rate and regular rhythm Heart Sounds: normal S1 and normal S2; no gallop, no murmur and no cardiac rub Vessels: normal peripheral pulses; no JVD Gastrointestinal (Abdomen): normal bowel sounds, soft, nontender, no hepatosplenomegaly Musculoskeletal: no cyanosis or clubbing, extremities motor strength 5/5 Spine: thoracic spine normal to inspection and lumbar spine normal to inspection; no cervical spinal tenderness Skin: no rashes, warm and dry normal turgor Neurologic: patellar DTR's 2+ bilat, sensation intact no focal motor deficits Psychiatric: A+Ox3, euthymic affect Orientation: cooperative Lymphatic: no cervical or axillary lymphadenopathy no inguinal lymphadenopathy Results & Data Vital Signs (Past 12 Hours) Vital Signs Temp Pulse Resp BP Pulse Ox 01/12/19 15:24 36.8 C 63 16 118/74 97 Laboratory Results [facility] 01/12/19 05:21 Sodium 139 Potassium 4.4 Chloride 108 H Carbon Dioxide 26 BUN 19 H Creatinine 0.88 Glucose 111 H Calcium 9.2 Liver Function 01/12/19 Range/Units 05:21 Total Bilirubin 0.5 (0.2-1) mg/dl AST 14 L (15-37) U/L ALT 25 (12-78) U/L Alkaline Phosphatase 112 (45-117) U/L Albumin 3.5 (3.4-5.0) gm/dl Diagnostic Findings Microbiology 01/09/19 09:51 Ankle,Right Gram Stain - Final 01/09/19 09:51 Ankle,Right Aerobic and Anaerobic Culture - Preliminary Staphylococcus aureus Staphylococcus aureus#2 01/07/19 05:37 Blood Aerobic Blood Culture - Final No growth in Aerobic bottle after 5 days. 01/07/19 05:37 Blood Anaerobic Blood Culture - Final No growth in Anaerobic bottle after 5 days. 01/05/19 23:49 Blood Aerobic Blood Culture - Final No growth in Aerobic bottle after 5 days. 01/05/19 23:49 Blood Anaerobic Blood Culture - Final Coag neg staph not lugdunensis Coag neg staph not lugdunensis#2 01/05/19 23:24 Blood Aerobic Blood Culture - Final No growth in Aerobic bottle after 5 days. 01/05/19 23:24 Blood Anaerobic Blood Culture - Final No growth in Anaerobic bottle after 5 days. 01/06/19 01:46 Ankle,Right Gram Stain - Final 01/06/19 01:46 Ankle,Right Wound Culture - Final Alcaligenes faecalis Staphylococcus aureus Staphylococcus aureus#2
--- NOTE | 2019-01-12 22:25 | Hospitalist Progress Note ---
Date of Service January 12, 2019 Assessment & Plan (1) Diabetic ulcer of ankle: Diabetic ulcers of right ankle/history of ORIF with pins/reported history of bone infection in the past- No records available for patient's medical history. will continue on Imipenam/Cilastatine Q6 hr and Vancomycin Appreciated orthopedic recommendations and follow up. Will consult ID for further discharge instructions. These included: Recommend combination of ceftriaxone 2 g daily for likely 6 weeks plus ciprofloxacin 500 mg orally twice daily Awaiting to get this set up with case management. Patient may also need wound vac. Awaiting for wound care team to see patient, this is the reason why discharge has been held. (2) Neutrophilic leukocytosis: See above This has improved. (3) Diabetes mellitus: A1c Accu- 6.7. Continue accuchecks AC&HS, and SSI before meals and at bedtime with NovoLog coverage per scale. (4) Status post ORIF of fracture of ankle: See above (5) Obesity (BMI 30-39.9): Counseling Spent 25 minutes in management of patient. Subjective Patient has no new complaints today. Awaiting to be eval for wound care for possible wound vac Review of Systems Review of Systems: All systems reviewed & are unremarkable except as noted in HPI & below Physical Exam Physical Exam: Constitutional: WD/WN, vitals as above well developed and well nourished Eyes: PERRL, conjunctivae normal, anicteric sclerae Neck: trachea midline, no thyromegaly Respiratory: normal respiratory effort, lungs clear to auscultation Cardiovascular: RRR, no murmur, no edema Chest (Breasts): normal inspection/palpation of breasts Gastrointestinal (Abdomen): normal bowel sounds, soft, nontender, no hepatosplenomegaly Musculoskeletal: Right lower extremity with dressing. No oozing noted Skin: no rashes, warm and dry Psychiatric: A+Ox3, euthymic affect Lymphatic: no cervical or axillary lymphadenopathy Results & Data Vital Signs (Past 12 Hours) Vital Signs Temp Pulse Resp BP Pulse Ox 01/12/19 15:24 36.8 C 63 16 118/74 97 PG Care Time/CCT Total # of Minutes Spent Total Time Spent with Patient: Total time spent is greater than 50% in coordination of care (as documented) at patient's floor/unit and/or counseling patient:
[2019-01-13 06:31] LABS: Creatinine Clr Calc Pharmacy 162.5 ml/min; Est GFR (African American) 118.2
[2019-01-13] MEDS: ENOXAPARIN INJ 40 MG/0.4 ML SYR SQ SCH (07:44)
[2019-01-13] MEDS: MoRPHine SULFATE 4 MG/ML 1 ML CARP\\VIAL IV PRN (07:45)
[2019-01-13] MEDS: NICOTINE 21 MG/24 HR TDSY TD SCH (07:45)
[2019-01-13] MEDS: CIPROFLOXACIN 500 MG TAB PO SCH (09:07)
[2019-01-13] MEDS: cefTRIAXone SODIUM 2,000 MG in DEXTROSE 5% 50 ML IV SCH (09:07)
[2019-01-13] MEDS: INSULIN ASPART 100 UNITS/ML 3 ML PEN SC SCH ×2 (09:12→13:43)
[2019-01-13] MEDS: OXYCODONE HCL IR 5 MG TAB (IMMEDIATE RELEASE) PO PRN (15:31)
--- NOTE | 2019-01-18 12:55 | Discharge Summary ---
Date of Service January 13, 2019 Admission HPI Per Admitting Provider The patient is a 58-year-old male, currently residing in [facility], who is brought to the emergency department due to worsening pain, swelling and open lesions on both sides of his right ankle. He reports a temperature of 104 degrees and his blood sugar was 310 this morning. He has a history of fracture and pins placed in the right ankle. Principal Diagnosis Osteomyelitis of right ankle Discharge Exam Constitutional: WD/WN, vitals as above well developed and well nourished Eyes: PERRL, conjunctivae normal, anicteric sclerae Neck: trachea midline, no thyromegaly Respiratory: normal respiratory effort, lungs clear to auscultation Cardiovascular: RRR, no murmur, no edema Chest (Breasts): normal inspection/palpation of breasts Gastrointestinal (Abdomen): normal bowel sounds, soft, nontender, no hepatosplenomegaly Musculoskeletal: Right lower extremity with dressing. No oozing noted Skin: no rashes, warm and dry Psychiatric: A+Ox3, euthymic affect Lymphatic: no cervical or axillary lymphadenopathy Discharge Data Allergies Allergy/AdvReac Type Severity Reaction Status Date / Time bee venom protein (honey bee) Allergy Severe Anaphylaxis Verified 01/17/19 12:01 Penicillins Allergy Severe Anaphylaxis Verified 01/17/19 12:01 Consultations 01/06/19 01:17 ED Decision to Admit Stat 01/06/19 02:26 Consult Case Management - Discharge Planning Routine 01/06/19 05:57 Consult Orthopedic Surgery Routine 01/06/19 09:43 Consult Infectious Diseases Routine Procedures Performed Operation Date: 01/09/19 11:30 Actual Procedures p Right Ankle Removal Hardware Medial Malleolous,(Right) - Zeferino Vergara DO s Irrigation and Debridement Skin/Fascia/Medial and Lateral Malleolous(Right) - Zeferino Vergara DO Ordered Studies 01/06/19 02:26 CT ankle RT wo con Urgent 01/09/19 08:49 FL ankle RT min 3V RTN Routine FL fluoroscopy <1hr Routine Hospital Course (1) Diabetic ulcer of ankle: Diabetic ulcers of right ankle/history of ORIF with pins/reported history of bone infection in the past- No records available for patient's medical history. will continue on Imipenam/Cilastatine Q6 hr and Vancomycin Appreciated orthopedic recommendations and follow up. Will consult ID for further discharge instructions. These included: Recommend combination of ceftriaxone 2 g daily for likely 6 weeks plus ciprofloxacin 500 mg orally twice daily IV access has been obtained, patient does not require wound vac. Patient is cleared for discharge (2) Neutrophilic leukocytosis: See above This has improved. (3) Diabetes mellitus: A1c Accu- 6.7. Continue accuchecks AC&HS, and SSI before meals and at bedtime with NovoLog coverage per scale. (4) Status post ORIF of fracture of ankle: See above (5) Obesity (BMI 30-39.9): Counseling Total Time Total Time Spent Total Time Spent (In Minutes): 32 Discharge Plan Discharge Items Patient Disposition: Home - Home Health Services Reason For Visit: DIABETIC LOWEER EXTREMITY ULCER Discharge Diagnosis: Diabetic lower extremity ulcer Discharge Goals: Decrease discomfort Activity: Resume your previous activity Non-emergency contact: Primary Care Provider Call non-emergency contact if: you have any medication questions Follow-up/Referrals: Jamar Cheema MD [Physician] - 02/01/19 1:30 pm (Please, follow up at [facility] Infectious Disease Office with Dr. Cheema on ThursdayFebruary 01 at 1:30 pm. *The office is located in [address] of [facility]. This is the big building next to this hospital. If you need to change this appointment, call the office at [phone].) Brenda Lawrence MD [Primary Care Provider] - 01/17/19 1:45 pm (Please, follow up with Dr. Lawrence on ThursdayJanuary 17 at 1:45 pm. *Dr. Lawrence will be your primary care provider. The address is [address] [place] [address] in [place]. If you need to change this appointment, call the office at [phone].) Diet: Regular Addtl Provider Instructions: You will be discharged on IV antibiotics daily for 6 weeks. Will also continue on Cipro for 6 weeks as well. This will help treat your infection. Recommend followup with PCP in 1-2 weeks. And infectious disease within 3 weeks. Care for right ankle wounds. Cleanse gently cleanse with saline, apply moistened aquacel AG, then cover sponges and hold in place kerlix, change outer wrap with raghu bandage. Prescriptions: New acetaminophen [Mapap (acetaminophen)] 325 mg Tablet 650 mg PO Q6 PRN (Reason: pain) Qty: 30 RF: 0 ciprofloxacin HCl 500 mg Tablet 500 mg PO BID Qty: 42 RF: 0 oxycodone 5 mg Tablet 5 mg PO Q4H PRN (Reason: severe pain) Qty: 30 RF: 0 ceftriaxone 2 gram recon soln 2 gm IV DAILY Qty: 42 RF: 0 metformin 500 mg tablet extended release 24 hr 500 mg PO BID Qty: 60 RF: 0 Stand-Alone Forms: [facility] [employer], [facility] [employer]/Other Patient Handouts: Ciprofloxacin Hydrochloride Oral tablet, PICC, PICC Care Dc, PICC Line Flush Home Discharge Orders: Discharge Order (Routine); Ordered 01/13/19 Ordered By: Samson Mauro Admission Data Admit Date/Time: 01/06/19 01:49 Attending Provider: Samson Mauro Admit Provider: Filiberto Arteaga Primary Care Provider: Brenda Lawrence Other Providers: Zeferino Vergara ; Filiberto Arteaga ; Jamar Cheema Service: Surgical Services Other Interventions: Discharge Summary Assessment (RN) Last Done: 01/13/19 15:12 DC Date/Time DO NOT enter until pt leaves facility: 01/13/19 16:22
== END 2019-01-13 16:22 | disposition home health service (06) | DRG 982 ==
LOC: ED 22:10 → 4E 01-06 01:49 → SUATTDRO 01-06 01:49 → 4E 01-06 02:07 → 3N 01-09 09:47